=== PATIENT | female | born 1940 | race Caucasian/White ===

== ENCOUNTER 2016-11-28 08:42 | Observation (INO) ==
--- NOTE | 2016-11-28 09:47 | Emergency Department Note ---
Disposition Clinical Impression: Atrial fibrillation Qualifiers: Atrial fibrillation type: unspecified Qualified Code(s): I48.91 - Unspecified atrial fibrillation Pneumonia Qualifiers: Pneumonia type: due to unspecified organism Laterality: bilateral Lung location : lower lobe of lung Qualified Code(s): J18.9 - Pneumonia, unspecified organism Disposition: Still a Patient Condition: Fair Referrals: Milind Quijano MD [Primary Care Provider] - Forms: ED Satisfaction Letter Time of Disposition: 11:15 Arrhythmia/Palpitations HPI - General Chief Complaint: ED Arrhythmia/Palpitations Stated Complaint: A-Fib from [facility] office Time Seen by Provider: 11/28/16 09:35 Source: patient Mode of arrival: wheelchair Limitations: no limitations Nursing Notes Reviewed: Yes Vital Signs Reviewed: Yes - History of Present Illness HPI Narrative: Patient presents to the emergency department from Dr. Silva's office. She has a history of atrial fibrillation and has been trying to have this controlled with medication, but this has not been successful she remains in A. fib at this time. Her heart rate is in the low 60s. She is alert and oriented appears to be in no distress denies any chest pain at this time. No diaphoresis no nausea no vomiting. She does have a nonproductive moist cough. Apparently 2 weeks ago she was treated at the urgent care for possible upper respiratory infection. She has continued to have coughing she has been on an antibiotic which she has finished. She is also that time 2 weeks ago received an injection of steroid medication and also an albuterol nebulizer machine. Pt Subjective Complaint: atrial fibrillation Onset (ago): unknown Duration: constant Severity: moderate Arrhythmia History: atrial fibrillation, on anti-coagulants Associated symptoms: Reports: denies other symptoms - Related Data Home Medications Medication Instructions Recorded Confirmed Albuterol Sulfate [Albuterol 2 puff IH Q4HR PRN 04/09/16 04/09/16 Inhaler] Alprazolam [Xanax 0.5 MG Tablet] 0.5 mg PO BID PRN 04/09/16 04/09/16 Ascorbate Calcium [Vitamin C] 500 mg PO DAILY 04/09/16 04/09/16 Aspirin Enteric Coated [Aspirin EC] 81 mg PO DAILY 04/09/16 04/09/16 Calcium Carbonate/Vitamin D3 1 each PO DAILY 04/09/16 04/09/16 [Calcium 500-Vit D3 400 Tablet] Cyclobenzaprine HCl 10 mg PO TID 04/09/16 04/09/16 Duloxetine [Cymbalta] 30 mg PO DAILY 04/09/16 04/09/16 Fish Oil/Dha/Epa [Fish Oil 1,200 1 each PO DAILY 04/09/16 04/09/16 mg Fish Oil] Fluticasone Propionate Nasal 1 spr NS DAILY PRN 04/09/16 04/09/16 [Flonase] HYDROcodone/Acet 5/325 mg [[place] 1 tab PO Q6H PRN 04/09/16 04/09/16 5-325 mg] Melatonin 5 mg PO HS PRN 04/09/16 04/09/16 Metoprolol [Lopressor] 12.5 mg PO BID 04/09/16 04/09/16 Promethazine [Phenergan] 25 mg PO Q6HR PRN 04/09/16 04/09/16 Simvastatin [Zocor] 40 mg PO HS 04/09/16 04/09/16 Vitamin E Acid Succinate [Vitamin 400 units PO DAILY 04/09/16 04/09/16 E] Previous Rx's Medication Instructions Recorded Aspirin Enteric Coated [Aspirin EC] 325 mg PO DAILY #21 tablet. 04/08/16 Oxycodone HCl 5 - 10 mg PO Q6HR #40 capsule 04/08/16 Allergies Allergy/AdvReac Type Severity Reaction Status Date / Time Penicillins [PCN] AdvReac Swelling Verified 04/09/16 07:50 of Lip/Tongue/Throat All systems ED: reviewed and negative except as stated. Constitutional: Denies: fever, chills, weakness, weight change Eyes: Denies: eye pain, eye discharge, vision change ENT ED: Denies: ear pain, throat pain, dental pain, hearing loss, epistaxis, congestion, dysphagia Cardiovascular: Denies: chest pain, palpitations, dyspnea on exertion, edema, syncope Respiratory: Reports: cough, dyspnea. Denies: wheezes, hemoptysis, stridor Gastrointestinal: Denies: abdominal pain, nausea, vomiting, diarrhea, constipation, hematemesis, melena, hematochezia Genitourinary: Denies: dysuria, frequency, hematuria, discharge Musculoskeletal: Denies: back pain, neck pain, arthralgia, myalgia Past Medical History - Past Medical History Attestation: Yes The following information was validated with the patient. Source: patient, nursing notes reviewed Medical history: Reports: arthritis, atrial fibrillation, GERD, hyperlipidemia, hypertension, osteoporosis Surgical history: Reports: other Psychiatric history: Reports: anxiety, depression - Social History Smoking Status: Current every day smoker Smokeless Tobacco Status: No Alcohol use: Reports: none Drug use: Reports: none Physical Exam - General Limitations: no limitations General appearance: alert - Head Head exam: atraumatic, normocephalic, normal inspection - Eye Eye exam: Present: normal appearance, PERRL, EOMI - ENT ENT exam: normal exam, normal oropharynx, mucous membranes moist - Neck Neck exam: Present: normal inspection, full ROM, trachea midline - Chest Chest inspection: Present: normal inspection, symmetric chest wall rise - Respiratory Respiratory exam: Present: wheezes. Absent: respiratory distress, prolonged expiratory phase - Expanded Respiratory Exam Location: rales: Left, Right, Lower - Cardiovascular Cardiovascular exam: Present: irregular rhythm (atrial fibrillation). Absent: systolic murmur, diastolic murmur, JVD - Abdominal Exam Abdominal exam: Present: soft, Non-Tender. Absent: tenderness, distention, guarding, rebound, rigidity - Extremities Exam Extremities exam: Present: normal inspection, full ROM. Absent: tenderness, pedal edema - Back Exam Back exam: Present: normal inspection, full ROM. Absent: tenderness - Neurological Exam Neurological exam: Present: alert, oriented X3 - Psychiatric Psychiatric exam: Present: normal affect, normal mood - Skin Skin exam: Present: warm, dry, intact, normal color Course - Consultations Consultation #1: spoke with Dr. Silva, he wants her admitted to the hospital, Ischemic Workup, as he saw ischemic changes on her EKG in his office, also she was having chest pain in his office. Spoke with hospitalist, Dr. Pantoja and she has accepted as patient. Will finish the workup and advise her of results. Time: 10:19 Vital Signs Temperature 97.9 F 11/28/16 08:47 Pulse Rate 65 11/28/16 08:47 Respiratory Rate 18 11/28/16 08:47 Blood Pressure 123/78 11/28/16 08:47 O2 Sat by Pulse Oximetry 94 L 11/28/16 08:47 Temperature 97.9 F 11/28/16 08:47 Pulse Rate 57 11/28/16 11:11 Respiratory Rate 18 11/28/16 11:11 Blood Pressure 115/79 11/28/16 11:11 O2 Sat by Pulse Oximetry 95 11/28/16 11:11 Oxygen Delivery Oxygen Delivery Nasal Cannula Arrhythmia/Palpitations - Lab Data Result diagrams: 11/28/16 11:02 Lab Results 11/28/16 Range/Units 11:02 WBC 8.4 (4.3-11.1) K/mcL RBC 4.34 (3.82-4.97) M/mcL Hgb 12.7 (11.5-15.4) g/dL Hct 40.5 (35.3-44.9) % MCV 93.3 (83.0-100.0) fL MCH 29.3 (28.0-33.3) pg MCHC 31.4 L (31.6-35.5) g/dL RDW 13.5 (11.5-14.5) % Plt Count 147 (140-400) K/mcL MPV 10.4 (9.4-12.4) fL Immature Gran % 0.2 (0-4) % Seg Neutrophils % 50.2 % Lymphocytes % 33.0 % Monocytes % 8.4 % Eosinophils % 8.0 % Basophils % 0.2 % Neutrophils # 4.2 (1.6-8.9) K/mcL Lymphocytes # 2.8 (0.6-4.6) K/mcL Monocytes # 0.7 (0.0-1.3) K/mcL Eosinophils # 0.7 H (0.0-0.6) K/mcL Basophils # 0.0 (0.0-0.2) K/mcL S.B.A.R. - S.B.A.R. Background: Presenting Complaint Assessment: Vital Signs, Course and respsone to treatment, Exam Concerns, Patient/Family Expectation, Pertinant Lab Results, Outstanding Labs Recommendation: Recommendation based on pending studies, treatments, or consults S.B.A.R. Report Given to: NOHELIA Rivera S.B.A.RYaniv Repor Time: 11:14
[2016-11-28] MEDS ORDERED: Ipratropium/Albuterol Neb 3 ML IH ONE (10:15)
[2016-11-28 11:08] LABS: Basophils % 0.2 %; Eosinophils # 0.7 K/mcL (0.0-0.6); Hematocrit 40.5 % (35.3-44.9); Hemoglobin 12.7 g/dL (11.5-15.4); Immature Granulocytes % 0.2 % (0-4); Lymphocytes # 2.8 K/mcL (0.6-4.6); Mean Corpuscular HGB Conc 31.4 g/dL (31.6-35.5); Mean Corpuscular Hemoglobin 29.3 pg (28.0-33.3); Mean Corpuscular Volume 93.3 fL (83.0-100.0); Mean Platelet Volume 10.4 fL (9.4-12.4); Monocytes # 0.7 K/mcL (0.0-1.3); Monocytes % 8.4 %; Neutrophils # 4.2 K/mcL (1.6-8.9); Platelet Count 147 K/mcL (140-400); Red Blood Count 4.34 M/mcL (3.82-4.97); Red Cell Distribution Width 13.5 % (11.5-14.5); Segmented Neutrophils % 50.2 %
[2016-11-28 11:16] LABS: INR 1.5; Prothrombin Time 16.7 Seconds (9.4-12.1)
--- NOTE | 2016-11-28 11:17 | Internal Med History&Physical ---
Date of Encounter: 11/28/16 Time of Encounter: 11:10 Assessment and Plan (1) Chest pressure Current visit: Yes Status: Acute Atypical, sounds more like GERD based on patient report, however will rule out for ACS. Last cath 3 years ago with minimal disease. EKG with T wave inversions in anterior leads which is not new when compared with previous EKG. Currently chest pain free. - Trend troponin - Keep patient chest pain free - Treat for pneumonia/COPD exacerbation to see if chest pain improves (2) HTN (hypertension) Current visit: No Status: Chronic BP stable - Continue home meds Qualifiers: Hypertension type: unspecified secondary hypertension Qualified Code(s): I15.9 - Secondary hypertension, unspecified; I15 - Secondary hypertension (3) HLD (hyperlipidemia) Current visit: No Status: Chronic Continue home statin Qualifiers: Hyperlipidemia type: unspecified Qualified Code(s): E78.5 - Hyperlipidemia , unspecified (4) Atrial fibrillation Current visit: Yes Status: Acute Patient associates atrial fibrillation with when her weakness began, now progressing. Rate controlled. - Continue home rate control meds (dilt and metoprolol) - Continue home xeralto Qualifiers: Atrial fibrillation type: unspecified Qualified Code(s): I48.91 - Unspecified atrial fibrillation (5) Pneumonia Current visit: Yes Status: Acute Patient with cough, shortness of breath in infiltrate on CXR. Patient was diagnosed with PNA several weeks ago and improved then had symptoms recur. - Failed azithromycin, on cephalosporin at home on admission - will change to levaquin for broader coverage given failed courses - Blood cultures - O2 PRN Qualifiers: Pneumonia type: due to unspecified organism Laterality: unspecified laterality Lung location: unspecified part of lung Qualified Code(s): J18.9 - Pneumonia, unspecified organism Internal Medicine - H&P: HPI Chief complaint: Shortness of breath, cough, substernal discomfort Admitted From: Emergency Dept Plans for Post Hospital Care: Home History of present illness: Ms. Hutson is a 76 year old female with history of mild CAD ([facility] 2013 with minimal CAD), atrial fibrillation, HTN, who presented to the ER this morning from her census taker, Dr. Silva,'s office because of weakness and concern for substernal chest pain. She states that she has had intermittent GERD symptoms for years and feels like her current chest pressure is related to her GERD. The pressure begins in her abdomen and radiates up into her sternal area. She states that she has been feeling weak over the past several months, ever since diagnosis for atrial fibrillation. She has had her rate medications (metoprolol and diltiazem) uptitrated recently and then noticed that she was even more fatigued. Two weeks ago she was diagnosed with pneumonia by urgent care and took a Z pack with mild improvement in coughing and shortness of breath. She then went on vacation to [place] and felt so weak and short of breath that she was unable to walk out to the [place] and ended up sitting in the hotel the entire time. Her cough has worsened over the past week and family has noticed that she is visibly dyspneic with minimal ambulation. She filled an antibiotic prescription (cefdinir) given to her by her PCP in case symptoms returned during vacation and has been taking it for three days. She has also been wheezing and has been using nebs frequently which temporarily does improve her symptoms. Past Med Surg Social Fam HX - Past Medical History Medical history: arthritis, atrial fibrillation, GERD, hyperlipidemia, hypertension, osteoporosis Psychiatric history: anxiety, depression - Past Surgical History Surgical History: other - Social History Smoking Status: Current every day smoker Smokeless Tobacco Status: No Alcohol use: none Drug use: none - Family History Mother Living Status: Hx Family Cancer: Yes (colon cancer) Internal Medicine - H&P: Meds Albuterol Sulfate [Albuterol Inhaler] 2 puff IH Q4HR PRN 04/09/16 [History] Alprazolam [Xanax 0.5 MG Tablet] 0.5 mg PO BID PRN 04/09/16 [History] Ascorbate Calcium [Vitamin C] 500 mg PO DAILY 04/09/16 [History] Aspirin Enteric Coated [Aspirin EC] 81 mg PO DAILY 04/09/16 [History] Calcium Carbonate/Vitamin D3 [Calcium 500-Vit D3 400 Tablet] 1 tab PO DAILY 09/24 [History] Cyclobenzaprine HCl 10 mg PO TID PRN 04/09/16 [History] Duloxetine [Cymbalta] 30 mg PO DAILY 04/09/16 [History] Fish Oil/Dha/Epa [Fish Oil 1,200 mg Fish Oil] 1,000 mg PO DAILY 04/09/16 [ History] HYDROcodone/Acet 5/325 mg [[place] 5-325 mg] 1 tab PO Q6H PRN 04/09/16 [History] Melatonin 10 mg PO HS PRN 04/09/16 [History] Promethazine [Phenergan] 25 mg PO Q6HR PRN 04/09/16 [History] Simvastatin [Zocor] 40 mg PO HS 04/09/16 [History] Vitamin E Acid Succinate [Vitamin E] 400 units PO DAILY 04/09/16 [History] Diltiazem SR (12hr) [Cardizem SR] 120 mg PO BID 11/28/16 [History] Metoprolol [Lopressor] 100 mg PO BID 11/28/16 [History] Rivaroxaban [Xarelto] 20 mg PO HS 11/28/16 [History] Allergies Penicillins [PCN] Allergy (Verified 11/28/16 11:35) Anaphylaxis All Systems PM: A 10-system review of systems was performed and is negative for pertinent findings except as documented above in the HPI. - Constitutional Vitals: Temp Pulse Resp BP Pulse Ox 97.9 F 54 18 106/95 94 L 11/28/16 08:47 11/28/16 09:46 11/28/16 10:56 11/28/16 09:46 11/28/16 10:56 General appearance: Present: A&O X 3 Exam: Patient in no acute distress, resting comfortably in bed - Head Head exam: Present: atraumatic - Eye Eye exam: Present: EOMI, sclera anicteric - ENT ENT exam: Present: mucous membranes moist - Neck Neck exam general surgery: Present: supple - Respiratory Additional comments: Bibasilar crackles. Minimal expiratory wheezes appreciated in upper airways - Cardiovascular Cardiovascular exam: Present: irregular rhythm. Absent: diastolic murmur, rubs , systolic murmur - GI/Abdominal GI/Abdominal exam: Present: normal bowel sounds, soft. Absent: distended, tenderness - Extremities Exam Extremities exam: Absent: pedal edema - Neurological Exam Neurological exam: Present: no focal deficits - Skin Skin exam: Absent: rash Internal Med - H&P Results - Labs CBC & Chem 7: 11/28/16 11:02 11/28/16 11:02 Labs: Short CBC 11/28/16 Range/Units 11:02 WBC 8.4 (4.3-11.1) K/mcL Hgb 12.7 (11.5-15.4) g/dL Hct 40.5 (35.3-44.9) % Plt Count 147 (140-400) K/mcL Neutrophils # 4.2 (1.6-8.9) K/mcL - Impressions ITS Impressions Chest X-Ray 11/28/16 09:49 IMPRESSION: Small right pleural effusion with right basilar atelectasis or pneumonia. Additional linear opacity bilaterally has morphology favoring atelectasis. D/ / Akbar Yates MD / Akbar Yates MD Interpreting Provider: Akbar Yates MD
[2016-11-28 11:19] LABS: Activated Partial Thrombo Time 36.6 Seconds (26.0-36.0)
[2016-11-28 11:22] LABS: BUN/Creatinine Ratio 15 (6-26); Blood Urea Nitrogen 12 mg/dL (7-20); Calcium 9.9 mg/dL (8.6-10.8); Carbon Dioxide 26 mEq/L (19-29); Chloride 104 mEq/L (98-109); Glucose 105 mg/dL (70-99); Osmolality,Calculated 286 (280-300); Potassium 4.2 mEq/L (3.5-4.5); Sodium 138 mEq/L (136-145); eGFR For African Americans > 60 (> 60); eGFR For Non-African Americans > 60 (> 60)
[2016-11-28 11:44] LABS: Thyroid Stimulating Hormone 1.518 mcIU/mL (0.350-4.840)
[2016-11-28] MEDS: 0.9 % Sodium Chloride 1,000 ML IVC SCH (11:47)
[2016-11-28] MEDS ORDERED: Naloxone 0.4 MG/ML INJ IVP PRN (13:14)
[2016-11-28] MEDS ORDERED: ALPRAZolam 0.5 MG TABLET PO PRN (13:18)
[2016-11-28] MEDS ORDERED: (Melatonin [Melatonin] 10 MG) PO PRN (13:18)
[2016-11-28] MEDS ORDERED: Albuterol 2.5 MG/3 ML NEBULIZER IH PRN (13:21)
[2016-11-28] MEDS: levoFLOXacin 500 MG TABLET PO SCH (14:00)
[2016-11-28] MEDS: Ipratropium/Albuterol Neb 3 ML IH SCH ×2 (19:03→21:53)
[2016-11-28] MEDS: Diltiazem SR (12hr) 60 MG CAPSULE PO SCH (21:12)
[2016-11-28] MEDS: *HR* Rivaroxaban 10 MG TABLET PO SCH (21:12)
[2016-11-28] MEDS: Metoprolol 100 MG TABLET PO SCH (21:12)
[2016-11-28] MEDS: *HR* HYDROcodone/Acet 5/325 mg TABLET PO PRN (21:26)
[2016-11-29] MEDS: Ipratropium/Albuterol Neb 3 ML IH SCH ×4 (04:00→21:43)
[2016-11-29 04:23] LABS: Basophils % 0.3 %; Eosinophils # 0.7 K/mcL (0.0-0.6); Eosinophils % 7.9 %; Hematocrit 39.5 % (35.3-44.9); Hemoglobin 12.5 g/dL (11.5-15.4); Immature Granulocytes % 0.7 % (0-4); Mean Corpuscular HGB Conc 31.6 g/dL (31.6-35.5); Mean Corpuscular Hemoglobin 29.1 pg (28.0-33.3); Mean Corpuscular Volume 92.1 fL (83.0-100.0); Mean Platelet Volume 10.9 fL (9.4-12.4); Monocytes # 0.9 K/mcL (0.0-1.3); Monocytes % 10.1 %; Neutrophils # 4.4 K/mcL (1.6-8.9); Platelet Count 158 K/mcL (140-400); Red Blood Count 4.29 M/mcL (3.82-4.97); Red Cell Distribution Width 13.5 % (11.5-14.5)
[2016-11-29 04:49] LABS: BUN/Creatinine Ratio 14 (6-26); Blood Urea Nitrogen 11 mg/dL (7-20); Calcium 8.7 mg/dL (8.6-10.8); Carbon Dioxide 25 mEq/L (19-29); Chloride 106 mEq/L (98-109); Glucose 108 mg/dL (70-99); Osmolality,Calculated 294 (280-300); Sodium 142 mEq/L (136-145); eGFR For African Americans > 60 (> 60); eGFR For Non-African Americans > 60 (> 60)
[2016-11-29] MEDS: *HR* HYDROcodone/Acet 5/325 mg TABLET PO PRN ×2 (05:29→21:21)
[2016-11-29] MEDS: 0.9 % Sodium Chloride 1,000 ML IVC SCH (06:38)
[2016-11-29] MEDS: levoFLOXacin 500 MG TABLET PO SCH (07:57)
[2016-11-29] MEDS: predniSONE 20 MG TABLET PO SCH (07:57)
[2016-11-29] MEDS: Ascorbic Acid 500 MG TABLET PO SCH (07:57)
[2016-11-29] MEDS: Aspirin Enteric Coated 81 MG Tablet PO SCH (07:57)
[2016-11-29] MEDS: Metoprolol 100 MG TABLET PO SCH ×2 (07:57→21:21)
[2016-11-29] MEDS: Diltiazem SR (12hr) 60 MG CAPSULE PO SCH ×2 (07:57→21:20)
--- NOTE | 2016-11-29 12:29 | Cardiology Consult Note ---
Date of Encounter: 11/29/16 Time of Encounter: 12:00 Assessment and Plan (1) Pneumonia Current Visit: Yes Status: Acute Per cardiology: -Patient with cough and congestion. -Chest x-ray with right plueral effusion and pneumonia. -On ATB, neb, and O2 if needed. -Management per primary service. (MILAGROS) Qualifiers: Pneumonia type: due to unspecified organism Laterality: unspecified laterality Lung location: unspecified part of lung Qualified Code(s): J18.9 - Pneumonia, unspecified organism (2) Atrial fibrillation Current Visit: Yes Status: Chronic Per cardiology: -Known history of a.fib, confirmed since at least April 2016. -On home doses of lopressor, cardizem, and xarelto. -HR controlled. -Has been short of breath withe exertion and increased fatigue. May be due to atrial fibrillation. -TSH ok -Continue with current medications. -Will check limited echo. -Can consider anti-arrhythmics or cardioversion after resolution of pneumonia in outpatient setting-- discussed with Dr. [place]. -Will continue to monitor. (MILAGROS) Qualifiers: Atrial fibrillation type: chronic Qualified Code(s): I48.2 - Chronic atrial fibrillation (3) Shortness of breath Current Visit: Yes Status: Acute Per cardiology: -Shortness of breath for the past several months. -States increased when heart rate increases. -Echo 06/2016 with LVEF 55%, mildly dilated left atrium, no significant valvular dysfunction, no evidenced of pulmonary hypertension, all wall segments with normal motion. -[facility] 2013 with LAD minimal disease. -Will check limited echo. -Will continue to monitor. (MILAGROS) (4) Fatigue Current Visit: Yes Status: Acute Per cardiology: -States fatigue for the past several months. States worse than baseline -Will check limited echo. -Will continue to follow. (MILAGROS) Qualifiers: Fatigue type: unspecified Qualified Code(s): R53.83 - Other fatigue Discussion w patient/family: The assessment and plan as outlined above was discussed with the patient who expressed understanding and agreement. All questions were answered. Thank you for involving us in the care of your patient. Please call with any questions. Patient seen and examined with FELY Gilman Discussed and reviewed with . History of Present Illness Consult date: 11/29/16 Requesting physician: Bob Larry Consult reason: lana cardiology patient, ?stress, ?cardioversion Chief complaint: fatigue History of present illness: Ms. Hutson is a 76 year old female with a relevant past medical history of hyperlipidemia, atrial fibrillation, HTN, right total knee April 2016. Patient was at [facility] yesterday. was concerned regarding her symptoms and sent her to ER. Pateint states she has had increased shortness of breath and fatigue for the past several months. Patient denies chest pain or chest pressure. States she was confirmed to be in atrial fibrillation April 2016 after her knee replacement. Patient states she cannot tell when she is in a.fib, however can tell when she is tachycardic. States she has been checking her HR at home and it is usually 70-80s. States with exertion her HR increases and she becomes increasing short of breath. Patient states over the past several weeks, she has had cough and congestion. States she was being treated as outpatient for pneumonia. (MILAGROS) Past Med Surg Social Fam HX - Past Medical History Attestation: Yes The following information was validated with the patient. Source: patient, old records reviewed Medical history: arthritis, atrial fibrillation, GERD, hyperlipidemia, hypertension, osteoporosis Psychiatric history: anxiety, depression - Past Surgical History Surgical History: other - Social History Smoking Status: Current every day smoker Packs per day: 6 cigs per day Smokeless Tobacco Status: No Alcohol use: none Drug use: none - Family History Mother Adopted: No Family Member Ethnicity: Non- Living Status: Age at : 48 Cause of : Colon cancer Hx Family Cancer: Yes (colon cancer) Medications and Allergies Albuterol Sulfate [Albuterol Inhaler] 2 puff IH Q4HR PRN 04/09/16 [History] Alprazolam [Xanax 0.5 MG Tablet] 0.5 mg PO BID PRN 04/09/16 [History] Ascorbate Calcium [Vitamin C] 500 mg PO DAILY 04/09/16 [History] Aspirin Enteric Coated [Aspirin EC] 81 mg PO DAILY 04/09/16 [History] Calcium Carbonate/Vitamin D3 [Calcium 500-Vit D3 400 Tablet] 1 tab PO DAILY 09/24 [History] Cyclobenzaprine HCl 10 mg PO TID PRN 04/09/16 [History] Duloxetine [Cymbalta] 30 mg PO DAILY 04/09/16 [History] Fish Oil/Dha/Epa [Fish Oil 1,200 mg Fish Oil] 1,000 mg PO DAILY 04/09/16 [ History] HYDROcodone/Acet 5/325 mg [[place] 5-325 mg] 1 tab PO Q6H PRN 04/09/16 [History] Melatonin 10 mg PO HS PRN 04/09/16 [History] Promethazine [Phenergan] 25 mg PO Q6HR PRN 04/09/16 [History] Simvastatin [Zocor] 40 mg PO HS 04/09/16 [History] Vitamin E Acid Succinate [Vitamin E] 400 units PO DAILY 04/09/16 [History] Diltiazem SR (12hr) [Cardizem SR] 120 mg PO BID 11/28/16 [History] Metoprolol [Lopressor] 100 mg PO BID 11/28/16 [History] Rivaroxaban [Xarelto] 20 mg PO HS 11/28/16 [History] Allergies Penicillins [PCN] Allergy (Verified 11/28/16 11:35) Anaphylaxis All Systems Review: A 10-system review of systems was performed and is negative for pertinent findings except as documented above in the HPI. - Constitutional Constitutional: fatigue - Cardiovascular Cardiovascular: as per HPI, dyspnea on exertion, irregular heart rhythm - Respiratory Respiratory: cough Physical Examination Vital Signs, Last 4 Hours Temp Pulse Resp BP Pulse Ox 11/29/16 11:54 97.9 F 78 16 133/85 94 L 11/29/16 11:02 14 92 L General: Conversant, No Apparent Distress HEENT: Atraumatic, Normocephaly, Mucus Membranes Moist Neck: No JVD, Normal carotid pulses Cardiac: Other (Irregularly irregular) Lungs: Other (expiratory wheeze noted to left lower lobe) Neuro: Alert and responsive, No focal deficits noted Abdomen: Soft, Non-Tender Skin: No rashes noted on visualized skin Musculoskeletal: No Chest Wall Tenderness Extremities: No Clubbing, No Cyanosis, Normal Pulses, Other (mild non-pitting pedal edema) Results 11/29/16 03:12 11/29/16 03:12 Lab Results Active Medications Acetaminophen/Hydrocodone Bitart ([place] 5-325 Mg) 1 tab PO Q6H PRN PRN Reason: Mild Pain Stop: 05/30/17 13:19 Last Admin: 11/29/16 05:29 Dose: 1 tab Albuterol Sulfate (Proventil Neb) 2.5 mg IH Q2H PRN; Protocol PRN Reason: Shortness Of Breath/Wheezing Stop: 05/30/17 13:22 Albuterol/Ipratropium (Duoneb) 3 ml IH [id number] [place] PRN Reason: Protocol Stop: 05/30/17 16:01 Last Admin: 11/29/16 11:02 Dose: 3 ml Alprazolam (Xanax) 0.5 mg PO BID PRN; Protocol PRN Reason: Anxiety Stop: 05/30/17 13:19 Ascorbic Acid (Vitamin C) 500 mg PO DAILY [place] Stop: 05/31/17 09:01 Last Admin: 11/29/16 07:57 Dose: 500 mg Aspirin (Aspirin Ec) 81 mg PO DAILY [facility] Stop: 05/31/17 09:01 Last Admin: 11/29/16 07:57 Dose: 81 mg Cyclobenzaprine HCl (Flexeril) 10 mg PO TID PRN PRN Reason: Muscle Spasm Stop: 05/30/17 13:19 Last Admin: 11/28/16 21:26 Dose: 10 mg Diltiazem HCl (Cardizem Sr) 120 mg PO BID [place] Stop: 05/30/17 21:01 Last Admin: 11/29/16 07:57 Dose: 120 mg Duloxetine HCl (Cymbalta) 30 mg PO DAILY [facility] Stop: 05/31/17 09:01 Last Admin: 11/29/16 07:57 Dose: 30 mg Sodium Chloride (0.9 % Sodium Chloride) 1,000 mls @ 50 mls/hr IVC .Q20H [place] Stop: 05/30/17 10:01 Last Admin: 11/29/16 06:38 Dose: 50 mls/hr Levofloxacin (Levaquin) 500 mg PO DAILY [place] PRN Reason: Protocol Stop: 05/30/17 13:31 Last Admin: 11/29/16 07:57 Dose: 500 mg Melatonin (Melatonin) 9 mg PO HS PRN PRN Reason: Insomnia Stop: 05/31/17 11:19 Metoprolol Tartrate (Lopressor) 100 mg PO BID [facility] Stop: 05/30/17 21:01 Last Admin: 11/29/16 07:57 Dose: 100 mg Naloxone HCl (Narcan) 0.4 mg IVP Q2MIN PRN PRN Reason: Opioid Reversal Stop: 05/30/17 13:15 Prednisone (Prednisone) 40 mg PO DAILY [facility] Stop: 05/31/17 09:01 Last Admin: 11/29/16 07:57 Dose: 40 mg Rivaroxaban (Xarelto) 20 mg PO HS [facility] Stop: 05/30/17 21:01 Last Admin: 11/28/16 21:12 Dose: 20 mg Simvastatin (Zocor) 40 mg PO HS [place] PRN Reason: Protocol Stop: 05/30/17 21:01 Last Admin: 11/28/16 21:12 Dose: 40 mg Laboratory Tests 11/28/16 11/28/16 11/28/16 11:02 11:02 14:05 Hgb Hct Potassium Creatinine Troponin I 0.01 0.01 TSH 1.518 11/28/16 11/29/16 11/29/16 20:25 03:12 03:12 Hgb 12.5 Hct 39.5 Potassium Creatinine Troponin I 0.01 0.00 TSH 11/29/16 03:12 Hgb Hct Potassium 4.0 Creatinine 0.78 Troponin I TSH - Imaging and Cardiology Chest Xray: report reviewed Echo: report reviewed Cardiac cath: report reviewed - EKG Interpretation EKG results cardiology: personally reviewed (ECG with atrial fibrillation with slow ventricular response with HR 53.), other (Telemetry reviewed with average HR 78, atrial fibrillation.) Consult Discharge Plan - Plan Referrals: Milind Quijano MD [Primary Care Provider] - 12/11/16 10:00 am (Please follow up as schedule...)
--- NOTE | 2016-11-29 16:21 | Electrocardiograph Report ---
[address] [address] Test Date: 2016-11-28 Pat Name: Marisela Hutson Department: 105 Room: 2A43 Gender: F Crank Hand: : 1940 Requested By: Leticia De Jesus Order Number: [id number] Reading MD: Joss Nina MD Measurements Intervals Chrisman Rate: 53 P: [place]: 0 QRS: 36 QRSD: 90 T: 28 QT: 456 QTc: 440 Interpretive Statements ATRIAL FIBRILLATION WITH SLOW VENTRICULAR RESPONSE NONSPECIFIC ST \T\ T-WAVE ABNORMALITY Electronically Signed On 11-29-2016 16:19:45 EDT by Joss Nina MD
--- NOTE | 2016-11-29 17:27 | Internal Med Progress Note ---
<Cecille Van - Last Filed: 11/29/16 17:02> Date of Encounter: 11/29/16 Time of Encounter: 17:02 - Assessment and plan (1) Chest pressure Current Visit: Yes Status: Acute Assessment and plan: Improving. May be secondary to pneumonia vs GERD vs ACS vs other Troponin negative x 3. Last cath in 2013 with minimal disease. Last echo in 06/2016 with LVEF 65% Cardiology consulted. Plan for echocardiogram. Consider nuclear medicine stress test pending echo results. (2) HTN (hypertension) Current Visit: No Status: Chronic Assessment and plan: Blood pressure stable. Will continue home medications. Qualifiers: Hypertension type: unspecified secondary hypertension Qualified Code(s): I15.9 - Secondary hypertension, unspecified (3) HLD (hyperlipidemia) Current Visit: No Status: Chronic Assessment and plan: Stable. Continue home medication. Qualifiers: Hyperlipidemia type: unspecified Qualified Code(s): E78.5 - Hyperlipidemia , unspecified (4) Atrial fibrillation Current Visit: Yes Status: Chronic Assessment and plan: Patient has history of atrial fibrillation, present since TKA in April 2016. Has been rate controlled with metoprolol and diltaizem, will continue. Will continue xarelto. Cardiology consulted per request of Dr. Silva for consideration of possible cardioversion. Repeat echo pending. Qualifiers: Atrial fibrillation type: chronic Qualified Code(s): I48.2 - Chronic atrial fibrillation (5) Pneumonia Current Visit: Yes Status: Acute Assessment and plan: Chest xray with infiltrate and possible small pleural effusion. Patient treated outpatient 2 weeks ago with azithromycin. Patient recently with 3 days of cefdinir outpatient prior to admission. Continue levaquin (day 2). Blood cultures obtained on admission with NG x 24 hours. Will atttempt to wean supplemental oxygen, will use oxygen as needed to maintain SpO2 > 88%. Given smoking history and concern for underlying COPD (no formal diagnosis), will continue duonebs scheduled and albuterol nebulizer PRN. Qualifiers: Pneumonia type: due to unspecified organism Laterality: unspecified laterality Lung location: unspecified part of lung Qualified Code(s): J18.9 - Pneumonia, unspecified organism - Subjective Interval history: Patient seen and examined at bedside this morning. Patient admitted overnight for chest pain after presenting to [facility] and being evaluated by Dr. Silva. When she presented to the office she had complained of 3-4 weeks of increasing shortness of breath and fatigue. She has a known history of a-fib present since her TKA in April of last year. She is rate controlled with metoprolol and cardizem however is not rhythm controlled. Due to concerns of possible ischemia, Dr. Silva sent her over to the emergency room for cardiac workup. In ER, initial troponin obtained was negative. EKG obtained demonstrated no change from previous EKGs. Overnight, she has been NPO and subsequent troponins have also been negative. Per discussion with Dr. Silva, he was concerned about an ischemic event given the length of time of her symptoms of shortenss of breath and fatigue. He was also concerned that she was rate but not rhythm controlled and had never attempted cardioversion. Dr. Silva is requesting a nuclear medicine stress test as well as a consultation with cardiology for consideration of possible cardioversion. Patient this morning reports approximately 2 weeks ago she was seen at urgent care and was given azithromycin for concern for possible pneumonia. She had followed up with her PCP and was given a prescription for cefdinir since she was planning on going to [place] in case her symtpoms went worse. She subsequently went to [place] with her daughter and returned last Saturday. She was still feeling very fatigued and shortness of breath after she returned. She stated that she started the cefdinir on Saturday and took 3 doses prior to presenting to the ED. She states that she is feeling fatigued more lately and increasing shortness of breath. She feels like this has not changed since it started. She states her chest pain is currently improved, she has had issues with intermittent chest pain which she describes as a pressure and she associates with her GERD. She is also inquiring about home health for physical therapy since she was unable to complete physical therapy at the rehab facility after her TKA due to new onset of afib. She has no other acute concerns or complaints at this time. - Constitutional Vitals: Temp Pulse Resp BP Pulse Ox 98.2 F 82 16 118/70 91 L 11/29/16 16:02 11/29/16 16:02 11/29/16 16:02 11/29/16 16:02 11/29/16 16:02 General appearance: Present: cooperative, A&O X 3, no acute distress, answers questions appropriately - Head Head exam: Present: atraumatic, normocephalic - Eye Eye exam: Present: normal appearance. Absent: conjunctival injection - ENT ENT exam: Present: mucous membranes moist, normal external ear exam - Neck Neck exam general surgery: Present: supple, trachea midline - Respiratory Respiratory exam: Present: wheezes (end expiratory wheezes bilaterally ). Absent: decreased breath sounds, CTAB, rales, respiratory distress, rhonchi, stridor - Cardiovascular Cardiovascular exam: Present: irregular rhythm (regularly irregular), +S1, +S2. Absent: clicks, diastolic murmur, gallop, rubs, systolic murmur - GI/Abdominal GI/Abdominal exam: Present: normal bowel sounds, soft. Absent: distended, guarding, rebound, tenderness - Extremities Exam Extremities exam: Present: normal capillary refill. Absent: pedal edema - Psychiatric Psychiatric exam: Present: normal affect, normal mood Internal Medicine: Result - Labs CBC & Chem 7: 11/29/16 03:12 11/29/16 03:12 Labs: Short CBC 11/29/16 Range/Units 03:12 WBC 9.1 (4.3-11.1) K/mcL Hgb 12.5 (11.5-15.4) g/dL Hct 39.5 (35.3-44.9) % Plt Count 158 (140-400) K/mcL Neutrophils # 4.4 (1.6-8.9) K/mcL BMP 11/29/16 03:12 Sodium 142 Potassium 4.0 Chloride 106 Carbon Dioxide 25 BUN 11 Creatinine 0.78 Glucose 108 H Calcium 8.7 Cardiac Enzymes 11/28/16 11/29/16 Range/Units 20:25 03:12 Troponin I 0.01 0.00 (0-0.03) ng/mL - ABG Interpretation ABG results: PT/INR, D-dimer PT 16.7 Seconds (9.4-12.1) H 11/28/16 11:02 Consult Discharge Plan - Plan Referrals: Milind Quijano MD [Primary Care Provider] - 12/11/16 10:00 am (Please follow up as schedule...) <Bob Jimenez - Last Filed: 11/29/16 19:19> - Assessment and plan (1) Pneumonia Current Visit: Yes Status: Acute Qualifiers: Pneumonia type: due to Pneumococcus Laterality: right Lung location: lower lobe of lung Qualified Code(s): J13 - Pneumonia due to Streptococcus pneumoniae (2) Atrial fibrillation Current Visit: Yes Status: Chronic Qualifiers: Atrial fibrillation type: chronic Qualified Code(s): I48.2 - Chronic atrial fibrillation (3) HTN (hypertension) Current Visit: No Status: Chronic Qualifiers: Hypertension type: essential hypertension Qualified Code(s): I10 - Essential (primary) hypertension (4) HLD (hyperlipidemia) Current Visit: No Status: Chronic Qualifiers: Hyperlipidemia type: mixed hyperlipidemia Qualified Code(s): E78.2 - Mixed hyperlipidemia (5) Tobacco abuse Current Visit: No Status: Chronic (6) Fatigue Current Visit: Yes Status: Acute Qualifiers: Fatigue type: unspecified Qualified Code(s): R53.83 - Other fatigue (7) Obesity Current Visit: No Status: Chronic Qualifiers: Obesity type: due to excess calories Obesity severity: unspecified obesity severity Qualified Code(s): E66.09 - Other obesity due to excess calories - Constitutional Vitals: Temp Pulse Resp BP Pulse Ox 98.2 F 82 16 118/70 91 L 11/29/16 16:02 11/29/16 16:02 11/29/16 16:02 11/29/16 16:02 11/29/16 16:02 Internal Medicine: Result - Labs CBC & Chem 7: 11/29/16 03:12 11/29/16 03:12 Labs: Short CBC 11/29/16 Range/Units 03:12 WBC 9.1 (4.3-11.1) K/mcL Hgb 12.5 (11.5-15.4) g/dL Hct 39.5 (35.3-44.9) % Plt Count 158 (140-400) K/mcL Neutrophils # 4.4 (1.6-8.9) K/mcL BMP 11/29/16 03:12 Sodium 142 Potassium 4.0 Chloride 106 Carbon Dioxide 25 BUN 11 Creatinine 0.78 Glucose 108 H Calcium 8.7 Cardiac Enzymes 11/28/16 11/29/16 Range/Units 20:25 03:12 Troponin I 0.01 0.00 (0-0.03) ng/mL - ABG Interpretation ABG results: PT/INR, D-dimer PT 16.7 Seconds (9.4-12.1) H 11/28/16 11:02 - Attending Attestation I examined this patient and my medical decision-making was reviewed with the Resident Physician on 11/29/16. I agree with the documented findings, disposition and treatment plan as described except to the extent set forth below. Ms. Hutson is currently in observation for pneumonia and persistent atrial fibrillation. Ms. Hutson is still quite fatigued and dyspneic with exertion. Denies pain or heaviness. No GI symptoms. Exam Alert. Comfortable Heart irreg - not tachy Lungs with some rhonchi I/P 1. Pneumonia 2. Persistent a fib Further diagnoses and plan as above.
[2016-11-29] MEDS: *HR* Rivaroxaban 10 MG TABLET PO SCH (21:21)
[2016-11-30] MEDS: 0.9 % Sodium Chloride 1,000 ML IVC SCH (00:40)
[2016-11-30] MEDS: Ipratropium/Albuterol Neb 3 ML IH SCH ×4 (03:29→21:20)
[2016-11-30] MEDS: predniSONE 20 MG TABLET PO SCH (09:18)
[2016-11-30] MEDS: levoFLOXacin 500 MG TABLET PO SCH (09:18)
[2016-11-30] MEDS: Diltiazem SR (12hr) 60 MG CAPSULE PO SCH ×2 (09:18→21:10)
[2016-11-30] MEDS: Metoprolol 100 MG TABLET PO SCH ×2 (09:18→21:10)
[2016-11-30] MEDS: Aspirin Enteric Coated 81 MG Tablet PO SCH (09:18)
--- NOTE | 2016-11-30 10:53 | Cardiology Progress Note ---
Date of Encounter: 11/30/16 Time of Encounter: 10:51 Assessment and Plan (1) Atrial fibrillation Current Visit: Yes Status: Chronic Per cardiology: -Known history of a.fib, confirmed since at least April 2016. -On home doses of lopressor, cardizem, and xarelto. -HR controlled. Avg HR 88 bpm over last 24 hour. -Has been short of breath withe exertion and increased fatigue. May be due to atrial fibrillation. Limited TTE pending. Plan for cardioversion later today. No TEMO needed, no missed doses of Xarelto over the past month. Previous cardiac testing: Echo 06/2016 with LVEF 55%, mildly dilated left atrium, no significant valvular dysfunction, no evidenced of pulmonary hypertension, all wall segments with normal motion. [facility] 2013 with LAD minimal disease. If cardioversion is successful she can be discharged later today from a cardiac standpoint. Qualifiers: Atrial fibrillation type: chronic Qualified Code(s): I48.2 - Chronic atrial fibrillation Discussion w patient/family: The assessment and plan as outlined above was discussed with the patient and/or family members who expressed understanding and agreement. All questions were answered. Thank you for involving us in the care of your patient. Please call with any questions. Subjective Principal diagnosis: atrial fibrillation Interval history: No new complaints. NPO for possible cardioversion. Objective Vital Signs, Last 4 Hours Temp Pulse Resp BP Pulse Ox 11/30/16 07:00 98.5 F 84 16 148/81 94 L General: Conversant, No Apparent Distress HEENT: Atraumatic, Normocephaly, Mucus Membranes Moist Neck: No JVD, Normal carotid pulses Cardiac: Other (Irregularly irregular) Lungs: Normal Breath Sounds, No Wheeze, Rales, Rhonchi Neuro: Alert and responsive, No focal deficits noted Abdomen: Soft, Non-Tender Skin: No rashes noted on visualized skin Musculoskeletal: No Chest Wall Tenderness Extremities: No Clubbing, No Cyanosis, No Edema, Normal Pulses Results 11/29/16 03:12 11/29/16 03:12 - Imaging and Cardiology Echo: pending - EKG Interpretation EKG results cardiology: other (24 hour telemetry review shows avg at 88 bpm, atrial fibrillation.) Consult Discharge Plan - Plan Referrals: Milind Quijano MD [Primary Care Provider] - 12/11/16 10:00 am (Please follow up as schedule...)
[2016-11-30] MEDS: Ascorbic Acid 500 MG TABLET PO SCH (11:02)
--- NOTE | 2016-11-30 13:36 | ECHO - Doppler Report ---
Limited Echocardiogram Name: Marisela Hutson Date of Study: 11/30/2016 Date: 1940 Ht: 65.0 in Medical Record#: [id number] Age: 76 Wt: 240.0 lb Gender: Female BSA: 2.14 Order #: [id number] Location: [facility] Room #: 2A43 Reading Physician: Judson Brady DO, FACC, FASE, FASNC Waterproof Bag Sewer: Andrew Yuen Ordering Physician: Connor Montana MD, [facility] Primary Physician: Milind Quijano MD Indications: Short of breath Impressions: LVEF 55%. Grossly normal LV chamber size, wall thickness and function. Left Ventricular Wall Motion: Rest Echo Findings All wall segments showed normal motion. Findings: Study Quality * Technically sub-optimal due to poor echocardiographic windows. ECG Findings * Atrial fibrillation. Left Ventricle * LVEF 55%. * Grossly normal LV chamber size, wall thickness and function. Right Ventricle * Normal right ventricular structure and function. Left Atrium * Mildly dilated left atrium. Right Atrium * Mildly dilated right atrium. IVC * Normal IVC dimensions and inspiratory collapse. Tricuspid Valve * No pulmonary hypertension. Aorta * Normally sized aortic root. History Hypertension Hypercholesteremia History of Smoking Years 50 Packs 0.3 07/05/2016 a Previous Echo was performed. Measurements: BP: 105/ 63 2D Normal Values RVIDd: 3.00 cm <2.7 cm IVSd: 1.20 cm 0.6 - 1.0 cm LVIDd: 4.30 cm 3.7 - 5.6 cm LVPWd: 1.20 cm 0.6 - 1.1 cm LVIDs: 4.10 cm 1.5 - 3.6 cm AO: 2.70 cm < 4.0 cm LA: 3.20 cm 2.0 - 4.0cm %FS: 4.65 cm >25 % LA volume: 51 Tricuspid Valve TV Regurg Peak Grad: 28.00mmHg TV Regurg Peak Shamar: 2.64m/sec Updated by Judson Brady DO, FACC, FASE, FASNC on 11/30/2016 1:30:07 PM electronically signed on 11/30/2016 1:30:52 PM with status of Final Wall Motion Thornton: 1=Normal, 2=Hypokinesis, 3=Akinesis, 4=Dyskinesis, 5=Aneurysmal, 6=Hyperkinetic, X=Not Visualized (Blank)=Missing
[2016-11-30] MEDS ORDERED: *HR* FentaNYL (PF) 250 MCG/5 ML VIAL ONE (14:40)
[2016-11-30] MEDS ORDERED: *HR* Midazolam HCl 5 MG/5 ML VIAL IVP ONE (14:40)
[2016-11-30] MEDS ORDERED: Naloxone 0.4 MG/ML INJ ONE (15:20)
--- NOTE | 2016-11-30 16:18 | Internal Med Progress Note ---
<Cecille Van - Last Filed: 11/30/16 16:12> Date of Encounter: 11/30/16 Time of Encounter: 16:12 - Assessment and plan (1) Chest pressure Current Visit: Yes Status: Acute Assessment and plan: Improving. May be secondary to pneumonia vs GERD vs ACS vs other Troponin negative x 3. Last cath in 2013 with minimal disease. Last echo in 06/2016 with LVEF 65% Cardiology consulted. Plan for limited echo and cardioversion. Consider nuclear medicine stress test. (2) HTN (hypertension) Current Visit: No Status: Chronic Assessment and plan: Blood pressure stable. Will continue home medications. Qualifiers: Hypertension type: essential hypertension Qualified Code(s): I10 - Essential (primary) hypertension (3) HLD (hyperlipidemia) Current Visit: No Status: Chronic Assessment and plan: Stable. Continue home medication. Qualifiers: Hyperlipidemia type: mixed hyperlipidemia Qualified Code(s): E78.2 - Mixed hyperlipidemia (4) Atrial fibrillation Current Visit: Yes Status: Chronic Assessment and plan: Patient has history of atrial fibrillation, present since TKA in April 2016. Has been rate controlled with metoprolol and diltaizem, will continue. Will continue xarelto. Cardiology consulted, appreciate expertise and assistance. Plan for limited echo and cardioversion. Patient currently NPO. Qualifiers: Atrial fibrillation type: chronic Qualified Code(s): I48.2 - Chronic atrial fibrillation (5) Pneumonia Current Visit: Yes Status: Acute Assessment and plan: Chest xray with infiltrate and possible small pleural effusion. Patient treated outpatient 2 weeks ago with azithromycin. Patient recently with 3 days of cefdinir outpatient prior to admission. Continue levaquin (day 3). Blood cultures obtained on admission with NG Patient has been weaned off supplemental oxygen Given smoking history and concern for underlying COPD (no formal diagnosis), will continue duonebs scheduled and albuterol nebulizer PRN. Given no white count or sputum production, will reassess need for antibiotics prior to discharge. Will re-evaluate patient for her dyspnea after cardioversion. Qualifiers: Pneumonia type: due to Pneumococcus Laterality: right Lung location: lower lobe of lung Qualified Code(s): J13 - Pneumonia due to Streptococcus pneumoniae - Subjective Interval history: Patient seen and examined at bedside this morning. Patient presented to ER after being sent over from Dr. Silva's office after presenting for concerns of increasing shortness of breath and fatigue. Patient had been treated two weeks prior to admission with azithromycin. She had taken 3 days of cefdinir at home prior to admission. She has not been running a fever or had any sputum production at home. Patient has had a history of afib, currently rate but not rhythm controlled, new since April 2016 after TKA occurring while at rehab. She has been on xarelto since that time. Today, she reports that Dr. Brady came in and spoke to her last night. Patient states that he did not feel as if she had pneumonia due to lack of white count, fever or sputum production. She was made NPO at midnight. Patient and daughter who is in room bothr eport plans for an echocardiogram followed by a cardioversion today. She has no other acute concerns or complaints at this time. - Constitutional Vitals: Temp Pulse Resp BP Pulse Ox 98.0 F 74 14 154/85 94 L 11/30/16 10:45 11/30/16 10:45 11/30/16 10:45 11/30/16 10:45 11/30/16 10:45 General appearance: Present: cooperative, A&O X 3, no acute distress, answers questions appropriately - Head Head exam: Present: atraumatic, normocephalic - Eye Eye exam: Present: normal appearance. Absent: conjunctival injection - ENT ENT exam: Present: mucous membranes moist, normal external ear exam, normal oropharynx - Neck Neck exam general surgery: Present: supple, trachea midline - Respiratory Respiratory exam: Present: CTAB. Absent: rales, rhonchi, stridor, wheezes - Cardiovascular Cardiovascular exam: Present: irregular rhythm (regular rate), +S1, +S2. Absent : clicks, diastolic murmur, distant heart sounds, gallop, rubs, systolic murmur - GI/Abdominal GI/Abdominal exam: Present: normal bowel sounds, soft. Absent: distended, guarding, rebound, rigid, tenderness - Extremities Exam Extremities exam: Present: normal capillary refill. Absent: pedal edema - Psychiatric Psychiatric exam: Present: normal affect, normal mood - Skin Skin exam: Present: dry, intact, normal color, warm Internal Medicine: Result - Labs CBC & Chem 7: 11/29/16 03:12 11/29/16 03:12 - ABG Interpretation ABG results: PT/INR, D-dimer PT 16.7 Seconds (9.4-12.1) H 11/28/16 11:02 Consult Discharge Plan - Plan Referrals: Milind Quijano MD [Primary Care Provider] - 12/11/16 10:00 am (Please follow up as schedule...) <Bob Jimenez - Last Filed: 11/30/16 17:35> - Assessment and plan (1) Pneumonia Current Visit: Yes Status: Acute Qualifiers: Pneumonia type: due to Pneumococcus Laterality: right Lung location: lower lobe of lung Qualified Code(s): J13 - Pneumonia due to Streptococcus pneumoniae (2) Atrial fibrillation Current Visit: Yes Status: Chronic Qualifiers: Atrial fibrillation type: chronic Qualified Code(s): I48.2 - Chronic atrial fibrillation (3) HTN (hypertension) Current Visit: No Status: Chronic Qualifiers: Hypertension type: essential hypertension Qualified Code(s): I10 - Essential (primary) hypertension (4) HLD (hyperlipidemia) Current Visit: No Status: Chronic Qualifiers: Hyperlipidemia type: mixed hyperlipidemia Qualified Code(s): E78.2 - Mixed hyperlipidemia (5) Tobacco abuse Current Visit: No Status: Chronic (6) Fatigue Current Visit: Yes Status: Acute Qualifiers: Fatigue type: unspecified Qualified Code(s): R53.83 - Other fatigue (7) Obesity Current Visit: No Status: Chronic Qualifiers: Obesity type: due to excess calories Obesity severity: unspecified obesity severity Qualified Code(s): E66.09 - Other obesity due to excess calories - Constitutional Vitals: Temp Pulse Resp BP Pulse Ox 97.9 F 86 16 117/77 94 L 11/30/16 16:50 11/30/16 16:50 11/30/16 16:50 11/30/16 16:50 11/30/16 16:50 Internal Medicine: Result - Labs CBC & Chem 7: 11/29/16 03:12 11/29/16 03:12 - ABG Interpretation ABG results: PT/INR, D-dimer PT 16.7 Seconds (9.4-12.1) H 11/28/16 11:02 - Attending Attestation I examined this patient and my medical decision-making was reviewed with the Resident Physician on 11/30/16. I agree with the documented findings, disposition and treatment plan as described except to the extent set forth below. Ms. Hutson is currently in observation due to persistent a fib and fatigue. Ms. Hutson had echo with cardioversion today and did not convert. To have another attempt on Saturday. Currently feels OK otherwise. No CP or worsening dyspnea. Exam Alert. Comfortable Heart irreg Lungs with some rhonchi I/P 1. Persistent a fib 2. Acute resp illness Further diagnoses and plan as above.
--- NOTE | 2016-11-30 17:59 | ECHO - Doppler Report ---
Cardioversion Name: Marisela Hutson Date of Study: 11/30/2016 Date: 1940 Ht: Medical Record#: [id number] Age: 76 Wt: Gender: Female BSA: Order #: [id number] Location: [facility] Room #: 2A43 Reading Physician: Judson Brady DO, FACC Scrap Drop Crane Operator: Herbert Correa RDCS Ordering Physician: Eliazar Branch CNP Primary Physician: Impressions: Unsuccessful cardioversion despite 3 attempts. See details below. Medication Given: Time Medication Dose Units Route Medication per licensed staff mft Findings: * Unsuccessful cardioversion despite 3 attempts. See details below. Procedure details: Following informed consent, the patient was sedated with Versed and Fentanyl. After adequate sedation was achieved, synchronized electrical cardioversion in the AP approach was performed using 200, 250, and 300 Joules of biphasic energy. The first two attempts were not successful. After 300 Joules, the patient did convert to sinus rhythm, but quickly returned to atrial fibrillation within a minute. The patient was monitored for the standard 30 minutes post procedure. No neurological deficits were noted. Updated by Judson Brady DO, FACC, FASE, FASNC on 11/30/2016 5:52:57 PM
[2016-11-30 19:10] LABS: Magnesium 2.2 mg/dL (1.6-2.6)
[2016-11-30] MEDS: *HR* Rivaroxaban 10 MG TABLET PO SCH (21:10)
[2016-12-01] MEDS: *HR* HYDROcodone/Acet 5/325 mg TABLET PO PRN ×3 (00:20→22:38)
[2016-12-01] MEDS: 0.9 % Sodium Chloride 1,000 ML IVC SCH ×2 (00:25→20:47)
[2016-12-01] MEDS: Melatonin 3 MG TABLET PO PRN ×2 (00:25→22:42)
[2016-12-01] MEDS: Ipratropium/Albuterol Neb 3 ML IH SCH ×4 (03:37→22:11)
[2016-12-01] MEDS: Metoprolol 100 MG TABLET PO SCH ×2 (08:45→20:48)
[2016-12-01] MEDS: Ascorbic Acid 500 MG TABLET PO SCH (08:46)
[2016-12-01] MEDS: Aspirin Enteric Coated 81 MG Tablet PO SCH (08:46)
[2016-12-01] MEDS: Diltiazem SR (12hr) 60 MG CAPSULE PO SCH ×2 (08:46→20:48)
[2016-12-01] MEDS: levoFLOXacin 500 MG TABLET PO SCH (08:46)
[2016-12-01] MEDS: predniSONE 20 MG TABLET PO SCH (08:46)
--- NOTE | 2016-12-01 14:02 | Cardiology Progress Note ---
Date of Encounter: 12/01/16 Time of Encounter: 14:01 Assessment and Plan (1) Atrial fibrillation Current Visit: Yes Status: Chronic Per cardiology: -Known history of a.fib, confirmed since at least April 2016. -HR controlled. Avg HR 78 bpm over last 24 hour. -Has been short of breath withe exertion and increased fatigue. May be due to atrial fibrillation. TTE this admission showed normal EF, limited study. Echo 06/2016 with LVEF 55%, mildly dilated left atrium, no significant valvular dysfunction, no evidenced of pulmonary hypertension, all wall segments with normal motion. [facility] 2013 with LAD minimal disease. S/p unsuccessful DCCV. Started on flecainide. Received 2 doses. Requires 5 doses monitored in the hospital. Baseline EKG showed afib, QT/QTC 398/442, QRS 91 ms, heart rate 87 bpm. First dose EKG: QT/QTC 376/418, QRS 87 ms, heart rate 68 bpm. Second dose EKG: QT/QTC 449/456, QRS 88ms, heart rate 63 bpm, afib If she does not convert to normal sinus rhythm she will require DCCV Saturday. She is tolerating well. Continue xarelto for anticoagulation. Qualifiers: Atrial fibrillation type: chronic Qualified Code(s): I48.2 - Chronic atrial fibrillation Discussion w patient/family: The assessment and plan as outlined above was discussed with the patient and/or family members who expressed understanding and agreement. All questions were answered. Thank you for involving us in the care of your patient. Please call with any questions. Subjective Principal diagnosis: atrial fibrillation Interval history: No new complaints. Status post unsuccessful cardioversion yesterday. Started on flecainide. Denies any side effects. Objective Vital Signs, Last 4 Hours Temp Pulse Resp BP Pulse Ox 12/01/16 11:54 97.8 F 64 19 148/82 95 General: Conversant, No Apparent Distress HEENT: Atraumatic, Normocephaly, Mucus Membranes Moist Neck: No JVD, Normal carotid pulses Cardiac: Other (Irregularly irregular) Lungs: Normal Breath Sounds, No Wheeze, Rales, Rhonchi Neuro: Alert and responsive, No focal deficits noted Abdomen: Soft, Non-Tender Skin: No rashes noted on visualized skin Musculoskeletal: No Chest Wall Tenderness Extremities: No Clubbing, No Cyanosis, No Edema, Normal Pulses Results 11/29/16 03:12 11/29/16 03:12 Lab Results 11/30/16 18:48 Magnesium 2.2 AST 22 ALT 12 - EKG Interpretation EKG results cardiology: personally reviewed Consult Discharge Plan - Plan Referrals: Milind Quijano MD [Primary Care Provider] - 12/11/16 10:00 am (Please follow up as schedule...)
--- NOTE | 2016-12-01 14:15 | Internal Med Progress Note ---
<Cecille Van - Last Filed: 12/01/16 14:13> Date of Encounter: 12/01/16 Time of Encounter: 14:13 - Assessment and plan (1) Chest pressure Current Visit: Yes Status: Acute Assessment and plan: Improving. May be secondary to pneumonia vs GERD vs ACS vs other Troponin negative x 3. Last cath in 2013 with minimal disease. Last echo in 06/2016 with LVEF 65% Cardiology consulted. Limited echo with no acute change. Attempted cardioversio unsuccessful. Patient started on flecinide. Possible second attempt at cardioversion Saturday. (2) HTN (hypertension) Current Visit: No Status: Chronic Assessment and plan: Blood pressure stable. Will continue home medications. Qualifiers: Hypertension type: essential hypertension Qualified Code(s): I10 - Essential (primary) hypertension (3) HLD (hyperlipidemia) Current Visit: No Status: Chronic Assessment and plan: Stable. Continue home medication. Qualifiers: Hyperlipidemia type: mixed hyperlipidemia Qualified Code(s): E78.2 - Mixed hyperlipidemia (4) Atrial fibrillation Current Visit: Yes Status: Chronic Assessment and plan: Patient has history of atrial fibrillation, present since TKA in April 2016. Has been rate controlled with metoprolol and diltaizem, will continue. Will continue xarelto. Cardiology consulted, appreciate expertise and assistance. Limited echo with no change from prior. Attempted DCCV cardioversion 12/01/15. Patient currently on flecinide, will require monitoring in hospital for first 5 doses. May attempt second cardioversion Saturday. Qualifiers: Atrial fibrillation type: chronic Qualified Code(s): I48.2 - Chronic atrial fibrillation (5) Pneumonia Current Visit: Yes Status: Acute Assessment and plan: Chest xray with infiltrate and possible small pleural effusion. Patient treated outpatient 2 weeks ago with azithromycin. Patient recently with 3 days of cefdinir outpatient prior to admission. Continue levaquin (day 4). Blood cultures obtained on admission with NG Patient has been weaned off supplemental oxygen Given smoking history and concern for underlying COPD (no formal diagnosis), will continue duonebs scheduled and albuterol nebulizer PRN Qualifiers: Pneumonia type: due to Pneumococcus Laterality: right Lung location: lower lobe of lung Qualified Code(s): J13 - Pneumonia due to Streptococcus pneumoniae - Subjective Interval history: Patient seen and examined at bedside this morning. Patient presented to ER after being sent over from Dr. Silva's office after presenting for concerns of increasing shortness of breath and fatigue. Patient had been treated two weeks prior to admission with azithromycin. She had taken 3 days of cefdinir at home prior to admission. She has not been running a fever or had any sputum production at home. Patient has had a history of afib, currently rate but not rhythm controlled, new since April 2016 after TKA occurring while at rehab. She has been on xarelto since that time. Yesterday there was an attempted DCCV cardioversion after a limited echo which was unchanged from prior. Patient was started on flecinide per cardiology. If she does not convert by Saturday, there will be another attempt at DCCV. Patient this morning states she is feeling well. She is tolerating her diet with no nausea or vomiting. She is able to walk to the bathroom without any shortness of breath. She is feeling improved. She has no other acute concerns or complaints at this time. - Constitutional Vitals: Temp Pulse Resp BP Pulse Ox 97.8 F 64 19 148/82 95 12/01/16 11:54 12/01/16 11:54 12/01/16 11:54 12/01/16 11:54 12/01/16 11:54 General appearance: Present: cooperative, A&O X 3, no acute distress, answers questions appropriately - Head Head exam: Present: atraumatic, normocephalic - Eye Eye exam: Present: normal appearance. Absent: conjunctival injection - ENT ENT exam: Present: mucous membranes moist, normal external ear exam - Neck Neck exam general surgery: Present: supple, trachea midline - Respiratory Respiratory exam: Present: CTAB. Absent: rales, rhonchi, stridor, wheezes - Cardiovascular Cardiovascular exam: Present: RRR, +S1, +S2. Absent: clicks, diastolic murmur, gallop, rubs, systolic murmur - GI/Abdominal GI/Abdominal exam: Present: normal bowel sounds, soft. Absent: distended, guarding, rebound, tenderness - Extremities Exam Extremities exam: Present: normal capillary refill. Absent: pedal edema - Psychiatric Psychiatric exam: Present: normal affect, normal mood - Skin Skin exam: Present: dry, intact, warm Internal Medicine: Result - Labs CBC & Chem 7: 11/29/16 03:12 11/29/16 03:12 Labs: Liver Function 11/30/16 Range/Units 18:48 AST 22 (5-34) Units/L ALT 12 (0-55) Units/L - ABG Interpretation ABG results: PT/INR, D-dimer PT 16.7 Seconds (9.4-12.1) H 11/28/16 11:02 Consult Discharge Plan - Plan Referrals: Milind Quijano MD [Primary Care Provider] - 12/11/16 10:00 am (Please follow up as schedule...) <Bob Jimenez - Last Filed: 12/01/16 15:00> - Assessment and plan (1) Pneumonia Current Visit: Yes Status: Acute Qualifiers: Pneumonia type: due to Pneumococcus Laterality: right Lung location: lower lobe of lung Qualified Code(s): J13 - Pneumonia due to Streptococcus pneumoniae (2) Atrial fibrillation Current Visit: Yes Status: Chronic Qualifiers: Atrial fibrillation type: chronic Qualified Code(s): I48.2 - Chronic atrial fibrillation (3) HTN (hypertension) Current Visit: No Status: Chronic Qualifiers: Hypertension type: essential hypertension Qualified Code(s): I10 - Essential (primary) hypertension (4) HLD (hyperlipidemia) Current Visit: No Status: Chronic Qualifiers: Hyperlipidemia type: mixed hyperlipidemia Qualified Code(s): E78.2 - Mixed hyperlipidemia (5) Tobacco abuse Current Visit: No Status: Chronic (6) Fatigue Current Visit: Yes Status: Acute Qualifiers: Fatigue type: unspecified Qualified Code(s): R53.83 - Other fatigue (7) Obesity Current Visit: No Status: Chronic Qualifiers: Obesity type: due to excess calories Obesity severity: unspecified obesity severity Qualified Code(s): E66.09 - Other obesity due to excess calories - Constitutional Vitals: Temp Pulse Resp BP Pulse Ox 97.8 F 64 19 148/82 95 12/01/16 11:54 12/01/16 11:54 12/01/16 11:54 12/01/16 11:54 12/01/16 11:54 Internal Medicine: Result - Labs CBC & Chem 7: 11/29/16 03:12 11/29/16 03:12 Labs: Liver Function 11/30/16 Range/Units 18:48 AST 22 (5-34) Units/L ALT 12 (0-55) Units/L - ABG Interpretation ABG results: PT/INR, D-dimer PT 16.7 Seconds (9.4-12.1) H 11/28/16 11:02 - Attending Attestation I examined this patient and my medical decision-making was reviewed with the Resident Physician on 12/01/16. I agree with the documented findings, disposition and treatment plan as described except to the extent set forth below. Ms. Hutson is currently in observation for presumed pneumonia and atrial fibrillation. Ms. Hutson feels OK. Cardioversion was not successful yesterday. Plan to have again Saturday. Exam Alert. Comfortable Heart reg No wheeze I/P 1. Possible pneumonia - clinically has improved. Complete abx. 2. A fib - per cardiology Further diagnoses and plan as above.
[2016-12-01] MEDS: *HR* Rivaroxaban 10 MG TABLET PO SCH (20:48)
[2016-12-02] MEDS: Ipratropium/Albuterol Neb 3 ML IH SCH ×4 (03:53→22:06)
[2016-12-02] MEDS: predniSONE 20 MG TABLET PO SCH (08:55)
[2016-12-02] MEDS: Aspirin Enteric Coated 81 MG Tablet PO SCH (08:55)
[2016-12-02] MEDS: Ascorbic Acid 500 MG TABLET PO SCH (08:55)
[2016-12-02] MEDS: *HR* HYDROcodone/Acet 5/325 mg TABLET PO PRN ×2 (08:55→21:33)
[2016-12-02] MEDS: levoFLOXacin 500 MG TABLET PO SCH (08:55)
[2016-12-02] MEDS: Metoprolol 100 MG TABLET PO SCH ×2 (08:56→21:33)
[2016-12-02] MEDS: Diltiazem SR (12hr) 60 MG CAPSULE PO SCH ×2 (08:56→21:33)
--- NOTE | 2016-12-02 09:01 | Cardiology Progress Note ---
Date of Encounter: 12/02/16 Time of Encounter: 08:58 Assessment and Plan (1) Atrial fibrillation Current Visit: Yes Status: Chronic Per cardiology: Known history of a.fib, confirmed since at least April 2016. HR controlled. Avg HR 75 bpm over last 24 hours, longest pause 2.8 seconds during nocturnal hours.. Has been short of breath withe exertion and increased fatigue. May be due to atrial fibrillation. TTE this admission showed normal EF, limited study. Echo 06/2016 with LVEF 55%, mildly dilated left atrium, no significant valvular dysfunction, no evidenced of pulmonary hypertension, all wall segments with normal motion. [facility] 2013 with LAD minimal disease. S/p unsuccessful DCCV. Started on flecainide. Received 3 doses. 4th dose will be this AM. Requires 5 doses monitored in the hospital. Baseline EKG showed afib, QT/QTC 398/442, QRS 91 ms, heart rate 87 bpm. First dose EKG: QT/QTC 376/418, QRS 87 ms, heart rate 68 bpm. Second dose EKG: QT/QTC 449/456, QRS 88ms, heart rate 63 bpm, afib Third dose EKG QT/QTC 377/422, QRS 90ms, HR 88, A-Fib. If she does not convert to normal sinus rhythm she will require DCCV tomorrow morning--No TEMO necessary, as she has not missed any Xarelto doses in the past 30 days.. She is tolerating well. Continue xarelto for anticoagulation. Qualifiers: Atrial fibrillation type: chronic Qualified Code(s): I48.2 - Chronic atrial fibrillation Discussion w patient/family: The assessment and plan as outlined above was discussed with the patient and/or family members who expressed understanding and agreement. All questions were answered. Thank you for involving us in the care of your patient. Please call with any questions. I will discuss all the above with Dr. Montana and make changes as necessary. Subjective Principal diagnosis: atrial fibrillation Interval history: No cardiac complaints this AM. Objective Vital Signs, Last 4 Hours Temp Pulse Resp BP Pulse Ox 12/02/16 07:18 97.9 F 59 18 137/81 96 12/02/16 05:31 97.7 F 92 18 145/91 95 Vital Signs Temp Pulse Resp BP Pulse Ox 12/02/16 07:18 97.9 F 59 18 137/81 96 12/02/16 05:31 97.7 F 92 18 145/91 95 12/02/16 00:04 98.3 F 91 17 118/73 94 L 12/01/16 22:11 16 93 L 12/01/16 19:45 97.7 F 79 16 139/78 98 12/01/16 16:16 16 94 L 12/01/16 16:03 98.0 F 66 18 142/79 95 12/01/16 11:54 97.8 F 64 19 148/82 95 12/01/16 10:29 16 99 Intake and Output 12/01/16 12/02/16 12/02/16 23:59 07:59 15:59 Intake Total 1000 / 1000 430 / 430 Balance 1000 / 1000 430 / 430 Intake: IV Fluids 1000 / 1000 0.9 % Sodium Chloride 1, 1000 / 1000 000 ML @ 50 mls/hr IVC . Q20H [facility] Rx#:[id number] Oral 0 / 0 430 / 430 Other: Weight 110.314 kg Patient Weight 12/02/16 23:59 Weight 110.314 kg General: Conversant, No Apparent Distress HEENT: Atraumatic, Normocephaly, Mucus Membranes Moist Neck: No JVD, Normal carotid pulses Cardiac: Other (irregularly irregular) Lungs: Normal Breath Sounds, No Wheeze, Rales, Rhonchi Neuro: Alert and responsive, No focal deficits noted Abdomen: Soft, Non-Tender Skin: No rashes noted on visualized skin Musculoskeletal: No Chest Wall Tenderness Extremities: No Clubbing, No Cyanosis, No Edema, Normal Pulses Results 11/29/16 03:12 11/29/16 03:12 Active Medications Acetaminophen/Hydrocodone Bitart ([place] 5-325 Mg) 1 tab PO Q6H PRN PRN Reason: Mild Pain Stop: 05/30/17 13:19 Last Admin: 12/02/16 08:55 Dose: 1 tab Albuterol Sulfate (Proventil Neb) 2.5 mg IH Q2H PRN; Protocol PRN Reason: Shortness Of Breath/Wheezing Stop: 05/30/17 13:22 Albuterol/Ipratropium (Duoneb) 3 ml IH [id number] [place] PRN Reason: Protocol Stop: 05/30/17 16:01 Last Admin: 12/02/16 03:53 Dose: Not Given Alprazolam (Xanax) 0.5 mg PO BID PRN; Protocol PRN Reason: Anxiety Stop: 05/30/17 13:19 Ascorbic Acid (Vitamin C) 500 mg PO DAILY [facility] Stop: 05/31/17 09:01 Last Admin: 12/02/16 08:55 Dose: 500 mg Aspirin (Aspirin Ec) 81 mg PO DAILY [facility] Stop: 05/31/17 09:01 Last Admin: 12/02/16 08:55 Dose: 81 mg Cyclobenzaprine HCl (Flexeril) 10 mg PO TID PRN PRN Reason: Muscle Spasm Stop: 05/30/17 13:19 Last Admin: 12/02/16 08:55 Dose: 10 mg Diltiazem HCl (Cardizem Sr) 120 mg PO BID [facility] Stop: 05/30/17 21:01 Last Admin: 12/02/16 08:56 Dose: 120 mg Duloxetine HCl (Cymbalta) 30 mg PO DAILY [facility] Stop: 05/31/17 09:01 Last Admin: 12/02/16 08:56 Dose: 30 mg Flecainide Acetate (Flecainide) 50 mg PO Q12H [facility] Stop: 06/02/17 09:01 Last Admin: 12/01/16 20:53 Dose: 50 mg Sodium Chloride (0.9 % Sodium Chloride) 1,000 mls @ 50 mls/hr IVC .Q20H [facility] Stop: 05/30/17 10:01 Last Admin: 12/01/16 20:47 Dose: 50 mls/hr Levofloxacin (Levaquin) 500 mg PO DAILY [facility] PRN Reason: Protocol Stop: 05/30/17 13:31 Last Admin: 12/02/16 08:55 Dose: 500 mg Melatonin (Melatonin) 9 mg PO HS PRN PRN Reason: Insomnia Stop: 05/31/17 11:19 Last Admin: 12/01/16 22:42 Dose: 9 mg Metoprolol Tartrate (Lopressor) 100 mg PO BID [facility] Stop: 05/30/17 21:01 Last Admin: 12/02/16 08:56 Dose: 100 mg Naloxone HCl (Narcan) 0.4 mg IVP Q2MIN PRN PRN Reason: Opioid Reversal Stop: 05/30/17 13:15 Prednisone (Prednisone) 40 mg PO DAILY [facility] Stop: 05/31/17 09:01 Last Admin: 12/02/16 08:55 Dose: 40 mg Rivaroxaban (Xarelto) 20 mg PO HS [facility] Stop: 05/30/17 21:01 Last Admin: 12/01/16 20:48 Dose: 20 mg Simvastatin (Zocor) 40 mg PO HS [facility] PRN Reason: Protocol Stop: 05/30/17 21:01 Last Admin: 12/01/16 20:48 Dose: 40 mg - EKG Interpretation EKG results cardiology: other (24 hour tele aVG HR 75, A-Fib, longest pause 2.8 seconds nocturnal hours.) Consult Discharge Plan - Plan Referrals: Milind Quijano MD [Primary Care Provider] - 12/11/16 10:00 am (Please follow up as schedule...)
--- NOTE | 2016-12-02 10:08 | Internal Med Progress Note ---
<Cecille Van - Last Filed: 12/02/16 10:02> Date of Encounter: 12/02/16 Time of Encounter: 10:02 - Assessment and plan (1) Chest pressure Current Visit: Yes Status: Acute Assessment and plan: Improving. May be secondary to pneumonia vs GERD vs ACS vs other Troponin negative x 3. Last cath in 2013 with minimal disease. Last echo in 06/2016 with LVEF 65% Cardiology consulted. Limited echo with no acute change. Attempted cardioversion unsuccessful. Patient started on flecinide with no converstion of rhythm to normal. If failure to convert may attempt repeat cardioversion tomorrow. (2) HTN (hypertension) Current Visit: No Status: Chronic Assessment and plan: Blood pressure stable. Will continue home medications. Qualifiers: Hypertension type: essential hypertension Qualified Code(s): I10 - Essential (primary) hypertension (3) HLD (hyperlipidemia) Current Visit: No Status: Chronic Assessment and plan: Stable. Continue home medication. Qualifiers: Hyperlipidemia type: mixed hyperlipidemia Qualified Code(s): E78.2 - Mixed hyperlipidemia (4) Atrial fibrillation Current Visit: Yes Status: Chronic Assessment and plan: Patient has history of atrial fibrillation, present since TKA in April 2016. Has been rate controlled with metoprolol and diltaizem, will continue. Will continue xarelto. Cardiology consulted, appreciate expertise and assistance. Limited echo with no change from prior. Attempted DCCV cardioversion 12/01/15, failed. Patient currently on flecinide, has received three doses, EKG with continued a fib. Per cardiology, if no conversion will attempt second DCCV cardioversion on Saturday. Qualifiers: Atrial fibrillation type: chronic Qualified Code(s): I48.2 - Chronic atrial fibrillation (5) Pneumonia Current Visit: Yes Status: Acute Assessment and plan: Chest xray with infiltrate and possible small pleural effusion. Patient treated outpatient 2 weeks ago with azithromycin. Patient recently with 3 days of cefdinir outpatient prior to admission. Continue levaquin (day 5 of 5) Continue prednisone (day 5 of 5) Blood cultures obtained on admission with NG Given smoking history and concern for underlying COPD (no formal diagnosis), will continue duonebs scheduled and albuterol nebulizer PRN Qualifiers: Pneumonia type: due to Pneumococcus Laterality: right Lung location: lower lobe of lung Qualified Code(s): J13 - Pneumonia due to Streptococcus pneumoniae - Subjective Interval history: Patient seen and examined at bedside this morning. Patient presented to ER after being sent over from Dr. Silva's office after presenting for concerns of increasing shortness of breath and fatigue. Patient had been treated two weeks prior to admission with azithromycin. She had taken 3 days of cefdinir at home prior to admission. She has not been running a fever or had any sputum production at home. Patient has had a history of afib, currently rate but not rhythm controlled, new since April 2016 after TKA occurring while at rehab. She has been on xarelto since that time. During this hospitalization, an attempted DCCV cardioversion was performed with no success. Patient has been started on flecinide per cardiology, has received three doses with failure to convert to sinus rhythm from a fib. Per cardiology, if no conversion by Saturday will attempt another DVVC conversion. Patient this morning states she is feeling well She feels that her breathing is back to baseline. She also reports improvement in energy level. She is tolerating food with no nausea or vomiting. She is able to walk to the bathroom with no difficulty. She has no other acute concerns or complaints at this time. - Constitutional Vitals: Temp Pulse Resp BP Pulse Ox 97.9 F 59 18 137/81 96 12/02/16 07:18 12/02/16 07:18 12/02/16 07:18 12/02/16 07:18 12/02/16 07:18 General appearance: Present: cooperative, A&O X 3, no acute distress, answers questions appropriately - Head Head exam: Present: atraumatic, normocephalic - Eye Eye exam: Present: normal appearance. Absent: conjunctival injection - ENT ENT exam: Present: mucous membranes moist, normal external ear exam - Neck Neck exam general surgery: Present: supple, trachea midline - Respiratory Respiratory exam: Present: CTAB. Absent: rales, rhonchi, stridor, wheezes Additional comments: snoring heard - Cardiovascular Cardiovascular exam: Present: RRR, +S1, +S2. Absent: clicks, diastolic murmur, gallop, rubs, systolic murmur - GI/Abdominal GI/Abdominal exam: Present: hypoactive bowel sounds, soft. Absent: distended, guarding, rebound, tenderness - Extremities Exam Extremities exam: Present: normal capillary refill. Absent: calf tenderness, cyanotic, pedal edema - Psychiatric Psychiatric exam: Present: normal affect, normal mood - Skin Skin exam: Present: dry, intact, warm Internal Medicine: Result - Labs CBC & Chem 7: 11/29/16 03:12 11/29/16 03:12 - ABG Interpretation ABG results: PT/INR, D-dimer PT 16.7 Seconds (9.4-12.1) H 11/28/16 11:02 Consult Discharge Plan - Plan Referrals: Milind Quijano MD [Primary Care Provider] - 12/11/16 10:00 am (Please follow up as schedule...) <Bob Jimenez A - Last Filed: 12/02/16 13:47> - Assessment and plan (1) Pneumonia Current Visit: Yes Status: Acute Qualifiers: Pneumonia type: due to Pneumococcus Laterality: right Lung location: lower lobe of lung Qualified Code(s): J13 - Pneumonia due to Streptococcus pneumoniae (2) Atrial fibrillation Current Visit: Yes Status: Chronic Qualifiers: Atrial fibrillation type: chronic Qualified Code(s): I48.2 - Chronic atrial fibrillation (3) HTN (hypertension) Current Visit: No Status: Chronic Qualifiers: Hypertension type: essential hypertension Qualified Code(s): I10 - Essential (primary) hypertension (4) HLD (hyperlipidemia) Current Visit: No Status: Chronic Qualifiers: Hyperlipidemia type: mixed hyperlipidemia Qualified Code(s): E78.2 - Mixed hyperlipidemia (5) Tobacco abuse Current Visit: No Status: Chronic (6) Fatigue Current Visit: Yes Status: Acute Assessment and plan: Seems to be doing somewhat better. Qualifiers: Fatigue type: unspecified Qualified Code(s): R53.83 - Other fatigue (7) Obesity Current Visit: No Status: Chronic Qualifiers: Obesity type: due to excess calories Obesity severity: unspecified obesity severity Qualified Code(s): E66.09 - Other obesity due to excess calories - Constitutional Vitals: Temp Pulse Resp BP Pulse Ox 98.4 F 68 18 117/72 95 12/02/16 11:50 12/02/16 11:50 12/02/16 11:50 12/02/16 11:50 12/02/16 11:50 Internal Medicine: Result - Labs CBC & Chem 7: 11/29/16 03:12 11/29/16 03:12 - ABG Interpretation ABG results: PT/INR, D-dimer PT 16.7 Seconds (9.4-12.1) H 11/28/16 11:02 - Attending Attestation I examined this patient and my medical decision-making was reviewed with the Resident Physician on 12/02/16. I agree with the documented findings, disposition and treatment plan as described except to the extent set forth below. Ms. Hutson is currently in observation for presumptive pneumonia and atrial fibrillation. She is to have repeat cardioversion tomorrow. Ms. Hutson is comfortable. No CP. Less dyspnea with current treatment. No abd pain or GI symptoms.. Exam Alert. Comfortable Heart irreg - not tachy Lungs clear currently I/P 1. Presumptive PNA - clinically has improved despite to overt signs of infection. Will complete course 2. A fib - repeat cardioversion tomorrow. Further diagnoses and plan as above.
[2016-12-02] MEDS: 0.9 % Sodium Chloride 1,000 ML IVC SCH (16:25)
--- NOTE | 2016-12-02 20:58 | Electrocardiograph Report ---
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
--- NOTE | 2016-12-02 21:07 | Electrocardiograph Report ---
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
[2016-12-02] MEDS: *HR* Rivaroxaban 10 MG TABLET PO SCH (21:33)
[2016-12-02] MEDS: Melatonin 3 MG TABLET PO PRN (21:33)
[2016-12-03] MEDS: Ipratropium/Albuterol Neb 3 ML IH SCH ×3 (03:50→16:21)
--- NOTE | 2016-12-03 06:14 | Electrocardiograph Report ---
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
[2016-12-03] MEDS: Metoprolol 100 MG TABLET PO SCH (08:51)
[2016-12-03] MEDS: Diltiazem SR (12hr) 60 MG CAPSULE PO SCH (08:55)
[2016-12-03] MEDS: Aspirin Enteric Coated 81 MG Tablet PO SCH (08:56)
[2016-12-03] MEDS: Ascorbic Acid 500 MG TABLET PO SCH (08:56)
--- NOTE | 2016-12-03 09:01 | Internal Med Progress Note ---
<Cecille Van - Last Filed: 12/03/16 08:46> Date of Encounter: 12/03/16 Time of Encounter: 08:46 - Assessment and plan (1) Chest pressure Current Visit: Yes Status: Resolved Assessment and plan: Resolved. May be secondary to pneumonia vs GERD vs ACS vs other Patient had reported issues as outpatient prior to arrival, thought to be related to her GERD Troponin negative x 3. Last cath in 2013 with minimal disease. Last echo in 06/2016 with LVEF 65% Cardiology consulted. Limited echo with no acute change. (2) HTN (hypertension) Current Visit: No Status: Chronic Assessment and plan: Blood pressure stable. Will continue home medications. Qualifiers: Hypertension type: essential hypertension Qualified Code(s): I10 - Essential (primary) hypertension (3) HLD (hyperlipidemia) Current Visit: No Status: Chronic Assessment and plan: Stable. Continue home medication. Qualifiers: Hyperlipidemia type: mixed hyperlipidemia Qualified Code(s): E78.2 - Mixed hyperlipidemia (4) Atrial fibrillation Current Visit: Yes Status: Chronic Assessment and plan: Patient has history of atrial fibrillation, present since TKA in April 2016. Has been rate controlled with metoprolol and diltaizem, will continue. Will continue xarelto. Cardiology consulted, appreciate expertise and assistance. Limited echo with no change from prior. Attempted DCCV cardioversion 12/01/15, failed. Patient currently on flecinide, has received four doses, EKG with continued a fib. Patient has been NPO overnight, plan for second attempt at DCCV cardioversion later today Further recommendations as per cardiology. Qualifiers: Atrial fibrillation type: chronic Qualified Code(s): I48.2 - Chronic atrial fibrillation (5) Pneumonia Current Visit: Yes Status: Acute Assessment and plan: Chest xray with infiltrate and possible small pleural effusion. Patient treated outpatient 2 weeks ago with azithromycin. Patient recently with 3 days of cefdinir outpatient prior to admission. Completed 5 days of treatment with levaquin and prednisone. Blood cultures obtained on admission with NG Given smoking history and concern for underlying COPD (no formal diagnosis), will continue duonebs scheduled and albuterol nebulizer PRN Qualifiers: Pneumonia type: due to Pneumococcus Laterality: right Lung location: lower lobe of lung Qualified Code(s): J13 - Pneumonia due to Streptococcus pneumoniae - Subjective Interval history: Patient seen and examined at bedside this morning. Patient presented to ER after being sent over from Dr. Silva's office after presenting for concerns of increasing shortness of breath and fatigue. Patient had been treated two weeks prior to admission with azithromycin. She had taken 3 days of cefdinir at home prior to admission. She has not been running a fever or had any sputum production at home. Patient has had a history of afib, currently rate but not rhythm controlled, new since April 2016 after TKA occurring while at rehab. She has been on xarelto since that time. Dr. Silva asked her to come to the ER for ischemia and also for consideration of cardioversion. During this hospitalization, an attempted DCCV cardioversion was performed with no success. Patient has been started on flecinide per cardiology, has received four doses with failure to convert to sinus rhythm from a fib. Per cardiology, if no conversion by Saturday will attempt another DVVC conversion. Patient this morning states she is feeling well. She states that her chest pressure has resolved. She feels that her breathing is completely back to baseline. She reports she is feeling significantly improved from prior to admission. She is currently NPO in advance of another attempted cardioversion today. She has no other acute concerns or complaints at this time. - Constitutional Vitals: Temp Pulse Resp BP Pulse Ox 98.4 F 62 18 131/86 98 12/03/16 07:44 12/03/16 07:44 12/03/16 07:44 12/03/16 07:44 12/03/16 07:44 General appearance: Present: cooperative, A&O X 3, no acute distress, answers questions appropriately - Head Head exam: Present: atraumatic, normocephalic - Eye Eye exam: Present: normal appearance. Absent: conjunctival injection - ENT ENT exam: Present: mucous membranes moist, normal external ear exam - Neck Neck exam general surgery: Present: supple, trachea midline - Respiratory Respiratory exam: Present: CTAB. Absent: rales, rhonchi, stridor, wheezes - Cardiovascular Cardiovascular exam: Present: irregular rhythm (regular rate), +S1, +S2. Absent : clicks, diastolic murmur, gallop, rubs, systolic murmur - GI/Abdominal GI/Abdominal exam: Present: normal bowel sounds, soft. Absent: distended, guarding, rigid, tenderness - Extremities Exam Extremities exam: Present: normal capillary refill. Absent: pedal edema Internal Medicine: Result - Labs CBC & Chem 7: 11/29/16 03:12 11/29/16 03:12 - ABG Interpretation ABG results: PT/INR, D-dimer PT 16.7 Seconds (9.4-12.1) H 11/28/16 11:02 Consult Discharge Plan - Plan Referrals: Milind Quijano MD [Primary Care Provider] - 12/11/16 10:00 am (Please follow up as schedule...) <Bob Jimenez - Last Filed: 12/03/16 16:06> - Assessment and plan (1) Pneumonia Current Visit: Yes Status: Acute Qualifiers: Pneumonia type: due to Pneumococcus Laterality: right Lung location: lower lobe of lung Qualified Code(s): J13 - Pneumonia due to Streptococcus pneumoniae (2) Atrial fibrillation Current Visit: Yes Status: Chronic Qualifiers: Atrial fibrillation type: chronic Qualified Code(s): I48.2 - Chronic atrial fibrillation (3) HTN (hypertension) Current Visit: No Status: Chronic Qualifiers: Hypertension type: essential hypertension Qualified Code(s): I10 - Essential (primary) hypertension (4) HLD (hyperlipidemia) Current Visit: No Status: Chronic Qualifiers: Hyperlipidemia type: mixed hyperlipidemia Qualified Code(s): E78.2 - Mixed hyperlipidemia (5) Tobacco abuse Current Visit: No Status: Chronic (6) Fatigue Current Visit: Yes Status: Acute Qualifiers: Fatigue type: unspecified Qualified Code(s): R53.83 - Other fatigue (7) Obesity Current Visit: No Status: Chronic Qualifiers: Obesity type: due to excess calories Obesity severity: unspecified obesity severity Qualified Code(s): E66.09 - Other obesity due to excess calories - Constitutional Vitals: Temp Pulse Resp BP Pulse Ox 98.3 F 56 16 114/69 94 L 12/03/16 15:47 12/03/16 15:47 12/03/16 15:47 12/03/16 15:47 12/03/16 15:47 Internal Medicine: Result - Labs CBC & Chem 7: 11/29/16 03:12 11/29/16 03:12 - ABG Interpretation ABG results: PT/INR, D-dimer PT 16.7 Seconds (9.4-12.1) H 11/28/16 11:02 - Attending Attestation Please see discharge summary from today's date.
[2016-12-03] MEDS ORDERED: 0.9 % Sodium Chloride 1,000 ML ONE (12:03)
[2016-12-03] MEDS ORDERED: *HR* Midazolam HCl 5 MG/5 ML VIAL IVP ONE (12:07)
[2016-12-03] MEDS ORDERED: *HR* FentaNYL (PF) 100 MCG/2 ML VIAL ONE (12:07)
[2016-12-03] MEDS ORDERED: Naloxone 0.4 MG/ML INJ ONE (12:08)
--- NOTE | 2016-12-03 13:23 | Event Note ---
Date of Encounter: 12/03/16 Time of Encounter: 13:21 - Cardiology Event Note S/P successful DCCV today, currently SR rate 70s. Has received 6 doses of Flecainide. QRS remains <120ms and QTc remains <500ms. Cardiology is signing off. Recommend outpt follow-up with Dr. Hugh Ramos in 2-3 weeks in his A-Fib clinic--will coordinate. Continue Flecainide for rhythm control and continue Xarelto for anticoagulation.
[2016-12-03 15:48] VITALS: BP 114/69
--- NOTE | 2016-12-03 16:15 | Discharge Summary ---
Date of Encounter: 12/03/16 Time of Encounter: 16:08 - Discharge Diagnosis (1) Pneumonia Priority: Secondary Status: Resolved Qualifiers: Pneumonia type: due to Pneumococcus Laterality: right Lung location: lower lobe of lung Qualified Code(s): J13 - Pneumonia due to Streptococcus pneumoniae (2) Atrial fibrillation Priority: Primary Status: Chronic Qualifiers: Atrial fibrillation type: paroxysmal Qualified Code(s): I48.0 - Paroxysmal atrial fibrillation (3) HTN (hypertension) Priority: Secondary Status: Chronic Qualifiers: Hypertension type: essential hypertension Qualified Code(s): I10 - Essential (primary) hypertension (4) HLD (hyperlipidemia) Priority: Secondary Status: Chronic Qualifiers: Hyperlipidemia type: mixed hyperlipidemia Qualified Code(s): E78.2 - Mixed hyperlipidemia (5) Tobacco abuse Priority: Secondary Status: Chronic (6) Fatigue Priority: Secondary Status: Acute Qualifiers: Fatigue type: unspecified Qualified Code(s): R53.83 - Other fatigue (7) Obesity Priority: Secondary Status: Chronic Qualifiers: Obesity type: due to excess calories Obesity severity: unspecified obesity severity Qualified Code(s): E66.09 - Other obesity due to excess calories - Discharge Medications Prescriptions: RX: Flecainide 50 mg PO Q12H #30 tablet Home Medications: Albuterol Sulfate [Albuterol Inhaler] 2 puff IH Q4HR PRN 04/09/16 [History] Alprazolam [Xanax 0.5 MG Tablet] 0.5 mg PO BID PRN 04/09/16 [History] Ascorbate Calcium [Vitamin C] 500 mg PO DAILY 04/09/16 [History] Aspirin Enteric Coated [Aspirin EC] 81 mg PO DAILY 04/09/16 [History] Calcium Carbonate/Vitamin D3 [Calcium 500-Vit D3 400 Tablet] 1 tab PO DAILY 09/24 [History] Cyclobenzaprine HCl 10 mg PO TID PRN 04/09/16 [History] Duloxetine [Cymbalta] 30 mg PO DAILY 04/09/16 [History] Fish Oil/Dha/Epa [Fish Oil 1,200 mg Fish Oil] 1,000 mg PO DAILY 04/09/16 [ History] HYDROcodone/Acet 5/325 mg [[place] 5-325 mg] 1 tab PO Q6H PRN 04/09/16 [History] Melatonin 10 mg PO HS PRN 04/09/16 [History] Promethazine [Phenergan] 25 mg PO Q6HR PRN 04/09/16 [History] Simvastatin [Zocor] 40 mg PO HS 04/09/16 [History] Vitamin E Acid Succinate [Vitamin E] 400 units PO DAILY 04/09/16 [History] Diltiazem SR (12hr) [Cardizem SR] 120 mg PO BID 11/28/16 [History] Metoprolol [Lopressor] 100 mg PO BID 11/28/16 [History] Rivaroxaban [Xarelto] 20 mg PO HS 11/28/16 [History] Flecainide Acetate 50 mg PO Q12H #60 tablet 12/03/16 [Rx] Allergies/Adverse Reactions: Allergies Penicillins [PCN] Allergy (Verified 11/28/16 11:35) Anaphylaxis Procedures/tests Complete & Pending: Procedures Performed prior 72 hours Category Date Time Status CL Cardioversion [CL] Routine Night Supervisor 12/03/16 11:03 Ordered ECG 12 lead ECG [ECG] Routine Y 11/30/16 15:47 Completed ECG 12 lead ECG [ECG] Routine Y 12/01/16 12:40 Completed ECG 12 lead ECG [ECG] Routine Y 12/01/16 23:11 Completed ECG 12 lead ECG [ECG] Routine Y 12/02/16 Completed ECG 12 lead ECG [ECG] Routine Y 12/03/16 12:40 Ordered Date of admission: 11/28/16 11:38 Primary care physician: Milind Quijano MD Consults: 11/29/16 11:19 Consult to Cardiology [CONS] Routine Comment: Consulting Provider: Cardiology [place] Reason for Consult: Massiel Cards patient sent from office may need Nuc. Med stress test, possible cardioversion for A.fib per Dr. Silva Call Completed: No Discharging clinician: Bob Jimenez Anticipated date of discharge: 12/03/16 - Patient Status Disposition: Home, Self-Care Condition: Fair Functional capacity at discharge: independent ambulation Overall status at discharge: patient is progressing back to baseline - Discharge Instructions Follow Up With: Milind Quijano MD [Primary Care Provider] - 12/11/16 10:00 am (Please follow up as schedule...) - Diet and Activity Activity: increase activity as tolerated Diet: advance to your usual diet Hospital course: Ms. Hutson is a 76 year old female - Time Spent with Patient Total time spent providing and/or coordinating discharge services: - Constitutional Vitals: Temp Pulse Resp BP Pulse Ox 98.3 F 56 16 114/69 94 L 12/03/16 15:47 12/03/16 15:47 12/03/16 15:47 12/03/16 15:47 12/03/16 15:47 General appearance: Present: cooperative, A&O X 3, no acute distress, answers questions appropriately
--- NOTE | 2016-12-04 08:11 | Electrocardiograph Report ---
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
--- NOTE | 2016-12-04 08:11 | Electrocardiograph Report ---
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
--- NOTE | 2016-12-04 08:25 | Electrocardiograph Report ---
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
--- NOTE | 2016-12-05 07:29 | Electrocardiograph Report ---
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
--- NOTE | 2016-12-05 07:52 | Electrocardiograph Report ---
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
--- NOTE | 2016-12-05 11:08 | Invasive Diagnostic Lab ---
Cardioversion Name: Marisela Hutson Date of Study: 12/03/2016 : 1940 Ht: 165.0 cm / 65.0 in Medical Record#: [id number] Age: 76 Wt: 110.0 kg / 242.5 lb Gender: Female BSA: 2.15 Location: Fluoro Dose: 3 mGy BMI: 40.4 Operating Physician: Joss Nina MD: Procedures Performed: Procedure CARDIOVERSION, EXTERNAL Indications: Description Atrial arrhythmia Impressions: Successful synchronized cardioversion with 200 J Recommendations: Continue xarelto for chronic anticoagulation Procedure Description: After informed consent was obtained, patient was sedated, cardioversion pads placed anteroposterior confirmed by fluoroscopy and successful cardioversion with synchronized 200 J of energy delivered. Post cardioversion ekg shows sinus rhythm with pacs. ABLATION Procedure Medications Time Medication Dose Unit Route Given By 12:13 PM Oxygen 2 L/min nasal cannula Darlene Dejesus RN 12:20 PM Versed 3 Mg Intravenous MonikRandee andres RN 12:20 PM Fentanyl 50 Mcg Intravenous MonikRandee andres RN 12:22 PM Versed 1 Mg Intravenous MonikRandee andres RN 12:22 PM Fentanyl 25 Mcg Intravenous Randee Ruggiero RN 12:23 PM Versed 1 Mg Intravenous Randee Ruggiero RN 12:23 PM Fentanyl 25 Mcg Intravenous Randee Ruggiero RN Contrast: Isovue 0 ml. Complications: No complications occurred during the procedure. Complication None Updated by Joss Nina MD, [facility] on 12/05/2016 11:02:28 AM electronically signed on 12/05/2016 11:04:29 AM with status of Final
== END 2016-12-03 17:08 | disposition home or self-care (01) ==
LOC: 2ANU 08:42 → EMEROO 08:42 → 2ANU 13:09
PROVIDERS: ADMIT Internal Medicine; ATTEND Internal Medicine

== ENCOUNTER 2020-11-01 12:57 | Observation (INO) ==
[2020-11-01 13:38] LABS: Basophils % 0.4 %; Platelet Count 212 K/mcL (140-400)
[2020-11-01 13:39] LABS: Eosinophils # 0.1 K/mcL (0.0-0.6); Eosinophils % 0.7 %; Hematocrit 24.5 % (35.3-44.9); Immature Granulocytes % 0.4 % (0-4); Lymphocytes # 1.3 K/mcL (0.6-4.6); Lymphocytes % 16.6 %; Mean Corpuscular HGB Conc 24.1 g/dL (31.6-35.5); Mean Corpuscular Hemoglobin 16.8 pg (28.0-33.3); Mean Corpuscular Volume 69.6 fL (83.0-100.0); Mean Platelet Volume 10.5 fL (9.4-12.4); Monocytes # 0.5 K/mcL (0.0-1.3); Monocytes % 5.7 %; Neutrophils # 6.2 K/mcL (1.6-8.9); Nucleated Red Blood Cells 0.4 /100 WBC (0); Red Blood Count 3.52 M/mcL (3.82-4.97); Red Cell Distribution Width 20.5 % (11.5-14.5); Segmented Neutrophils % 76.2 %; White Blood Count 8.1 K/mcL (4.3-11.1)
[2020-11-01 14:09] LABS: Hemoglobin 5.9 g/dL (11.5-15.4)
[2020-11-01 14:13] LABS: Hypochromasia Present (Not Present); Microcytosis Present (Not Present)
[2020-11-01 14:14] LABS: Anisocytosis 1+ (Not Present); Stomatocytes 2+ (Not Present)
[2020-11-01 14:15] LABS: BUN/Creatinine Ratio 11 (6-26); Blood Urea Nitrogen 9 mg/dL (8-23); Calcium 9.9 mg/dL (8.6-10.3); Carbon Dioxide 26 mEq/L (23-29); Chloride 102 mEq/L (98-107); Glucose 130 mg/dL (70-105); Osmolality,Calculated 288 (280-300); Sodium 139 mEq/L (136-145); Troponin I < 0.03 ng/mL (< 0.04); eGFR For African Americans > 60 (> 60); eGFR For Non-African Americans > 60 (> 60)
[2020-11-01] MEDS ORDERED: Pantoprazole 40 MG VIAL IVP ONE (14:36)
[2020-11-01] MEDS ORDERED: Naloxone 0.4 MG/ML INJ IVP PRN (16:17)
[2020-11-01] MEDS ORDERED: Ondansetron 4 MG/2 ML VIAL IVP PRN (16:17)
[2020-11-01] MEDS ORDERED: Dextrose Gel 15 GM/37.5 ML TUBE PO PRN ×2 (16:19)
[2020-11-01] MEDS ORDERED: *HR* Dextrose 50 % in Water (Vial) 50 ML VIAL IVP PRN (16:19)
[2020-11-01] MEDS ORDERED: D5% in Water 1,000 ML IVC PRN (16:19)
[2020-11-01] MEDS ORDERED: 0.9 % Sodium Chloride 250 ML ONE ×2 (16:47→20:48)
[2020-11-01 16:48] LABS: % Iron Saturation 2 % (15-50); Iron 12 mcg/dL (50-170); Transferrin 425 mg/dL (203-362)
[2020-11-01 17:07] LABS: Ferritin < 8 ng/mL (10-120)
[2020-11-01 17:12] LABS: Folate 9.9 ng/mL (3.0-16.0)
[2020-11-01] MEDS ORDERED: *HR* Propofol 200 MG/20 ML VIAL IVP ONE (17:50)
[2020-11-01] MEDS: Insulin LISPRO 300 UNITS/3 ML VIAL SUBQ SCH (20:21)
[2020-11-01] MEDS: *HR* HYDROcodone/Acet 5/325 mg TABLET PO PRN (22:48)
[2020-11-01] MEDS: ALPRAZolam 0.5 MG TABLET PO PRN (22:48)
[2020-11-01] MEDS: Melatonin 3 MG TABLET PO PRN (22:48)
[2020-11-02 01:27] LABS: Basophils % 0.3 %; Hematocrit 32.1 % (35.3-44.9); Hemoglobin 8.4 g/dL (11.5-15.4); Immature Granulocytes % 0.8 % (0-4); Lymphocytes # 0.6 K/mcL (0.6-4.6); Lymphocytes % 8.4 %; Mean Corpuscular HGB Conc 26.2 g/dL (31.6-35.5); Mean Corpuscular Hemoglobin 18.9 pg (28.0-33.3); Mean Corpuscular Volume 72.1 fL (83.0-100.0); Mean Platelet Volume 10.7 fL (9.4-12.4); Monocytes # 0.1 K/mcL (0.0-1.3); Monocytes % 1.7 %; Nucleated Red Blood Cells 1.2 /100 WBC (0); Platelet Count 221 K/mcL (140-400); Red Blood Count 4.45 M/mcL (3.82-4.97); Red Cell Distribution Width 20.9 % (11.5-14.5); Segmented Neutrophils % 88.8 %; White Blood Count 7.6 K/mcL (4.3-11.1)
[2020-11-02 01:33] LABS: Neutrophils # 6.8 K/mcL (1.6-8.9)
[2020-11-02 01:36] LABS: BUN/Creatinine Ratio 13 (6-26); Blood Urea Nitrogen 11 mg/dL (8-23); Calcium 9.9 mg/dL (8.6-10.3); Carbon Dioxide 24 mEq/L (23-29); Chloride 101 mEq/L (98-107); Glucose 252 mg/dL (70-105); Osmolality,Calculated 290 (280-300); Potassium 4.1 mEq/L (3.5-5.1); Sodium 136 mEq/L (136-145); eGFR For African Americans > 60 (> 60); eGFR For Non-African Americans > 60 (> 60)
[2020-11-02 01:52] LABS: Anisocytosis 1+ (Not Present); Hypochromasia Present (Not Present); Microcytosis Present (Not Present); Platelet Estimate Normal (Normal)
[2020-11-02] MEDS ORDERED: 0.9 % Sodium Chloride 500 ML IVC ONE (02:33)
[2020-11-02] MEDS ORDERED: 0.9 % Sodium Chloride 1,000 ML IVC SCH (03:00)
[2020-11-02] MEDS ORDERED: Iron Sucrose Complex 400 MG in 0.9 % Sodium Chloride 250 ML IVPB ONE (08:40)
[2020-11-02] MEDS: Insulin LISPRO 300 UNITS/3 ML VIAL SUBQ SCH ×3 (09:23→18:40)
[2020-11-02 10:47] LABS: Hematocrit 28.7 % (35.3-44.9); Hemoglobin 7.6 g/dL (11.5-15.4)
[2020-11-02] MEDS ORDERED: 0.9 % Sodium Chloride 500 ML IVC SCH (13:15)
[2020-11-02] MEDS ORDERED: Lidocaine -MPF 2% 2 ML VIAL ONE (13:57)
[2020-11-02] MEDS: Pantoprazole 40 MG VIAL IVP SCH ×2 (16:40→18:40)
[2020-11-02] MEDS: *HR* HYDROcodone/Acet 5/325 mg TABLET PO PRN (21:09)
[2020-11-02] MEDS: Melatonin 3 MG TABLET PO PRN (21:09)
[2020-11-02] MEDS: ALPRAZolam 0.5 MG TABLET PO PRN (21:09)
[2020-11-03] MEDS: Pantoprazole 40 MG VIAL IVP SCH ×2 (06:29→20:16)
[2020-11-03] MEDS: Insulin LISPRO 300 UNITS/3 ML VIAL SUBQ SCH ×3 (07:32→18:11)
[2020-11-03] MEDS ORDERED: Perflutren Lipid Microsphere 1.3 ML in 0.9 % Sodium Chloride 8.7 ML IVP PRN (11:25)
[2020-11-03] MEDS: Furosemide 20 MG/2 ML VIAL IVP SCH ×2 (12:44→20:17)
[2020-11-03] MEDS ORDERED: *HR* Midazolam HCl 5 MG/5 ML VIAL IVP ONE ×2 (16:07→16:27)
[2020-11-03] MEDS ORDERED: *HR* FentaNYL (PF) 100 MCG/2 ML VIAL ONE (16:07)
[2020-11-03] MEDS ORDERED: *HR* FentaNYL (PF) 100 MCG/2 ML VIAL IVP ONE ×2 (16:27→16:56)
[2020-11-03] MEDS ORDERED: 0.9 % Sodium Chloride 1,000 ML IVC SCH (16:30)
[2020-11-03] MEDS: *HR* HYDROcodone/Acet 5/325 mg TABLET PO PRN (21:27)
[2020-11-03] MEDS: ALPRAZolam 0.5 MG TABLET PO PRN (21:27)
[2020-11-04] MEDS: Pantoprazole 40 MG VIAL IVP SCH (06:05)
[2020-11-04] MEDS: *HR* HYDROcodone/Acet 5/325 mg TABLET PO PRN (06:10)
[2020-11-04 06:31] LABS: Basophils % 0.4 %; Eosinophils # 0.1 K/mcL (0.0-0.6); Eosinophils % 0.8 %; Hematocrit 28.4 % (35.3-44.9); Hemoglobin 7.5 g/dL (11.5-15.4); Immature Granulocytes % 0.6 % (0-4); Immature Platelets 6.8 % (1.1-6.1); Lymphocytes # 2.6 K/mcL (0.6-4.6); Lymphocytes % 25.1 %; Mean Corpuscular HGB Conc 26.4 g/dL (31.6-35.5); Mean Corpuscular Hemoglobin 19.3 pg (28.0-33.3); Monocytes # 0.8 K/mcL (0.0-1.3); Monocytes % 8.1 %; Neutrophils # 6.6 K/mcL (1.6-8.9); Platelet Count 165 K/mcL (140-400); Red Blood Count 3.89 M/mcL (3.82-4.97); Red Cell Distribution Width 22.2 % (11.5-14.5); White Blood Count 10.2 K/mcL (4.3-11.1)
[2020-11-04 06:50] LABS: BUN/Creatinine Ratio 11 (6-26); Blood Urea Nitrogen 9 mg/dL (8-23); Calcium 9.1 mg/dL (8.6-10.3); Carbon Dioxide 31 mEq/L (23-29); Chloride 103 mEq/L (98-107); Glucose 125 mg/dL (70-105); Magnesium 1.6 mg/dL (1.6-2.6); Osmolality,Calculated 292 (280-300); Sodium 141 mEq/L (136-145); eGFR For African Americans > 60 (> 60); eGFR For Non-African Americans > 60 (> 60)
[2020-11-04 06:54] LABS: Hypochromasia Present (Not Present); Poikilocytosis 1+ (Not Present)
[2020-11-04 06:55] LABS: Anisocytosis 2+ (Not Present); Large Platelets Present (Not Present); Platelet Estimate Normal (Normal)
[2020-11-04 08:09] VITALS: BP 154/75
[2020-11-04] MEDS: Insulin LISPRO 300 UNITS/3 ML VIAL SUBQ SCH ×2 (08:15→12:26)
[2020-11-04] MEDS: Furosemide 20 MG/2 ML VIAL IVP SCH (08:15)
[2020-11-04] MEDS: Potassium Chloride Elixir 20 MEQ/15 ML UDC PO SCH ×2 (08:30→12:26)
== END 2020-11-04 14:15 | disposition home or self-care (01) ==
LOC: 3ANU 12:57 → EMEROOARM 12:57 → SUATTDRO 17:49 → 3ANU 18:45
PROVIDERS: ADMIT Internal Medicine; ATTEND Student in an Organized Health Care Education/Training Program
PROC: ENDOCCB (2020-11-03 13:45)